=== PATIENT | male | born 1950 | race Caucasian/White ===

== ENCOUNTER 2016-11-01 14:12 | Emergency (ER) | payer MEDICARE, BC ==
[2016-11-01 14:21] VITALS: BP 123/76; PULSE 101; RESP 20; TEMP 99.3
--- NOTE | 2016-11-01 14:43 | ED ---
General Adult HPI - General Chief complaint: Fall Stated complaint: Fall/Neck Pain Time Seen by Provider: 11/01/16 14:26 Source: patient, RN notes reviewed Mode of arrival: ambulatory Limitations: no limitations - History of Present Illness Initial comments: This is a 66-year-old male who states he fell down approximately 12 stairs at 2 AM Wednesday morning. Patient states he slipped on the top stair and slid down on his backside the rest of the way. Patient states he did hit his head but did not lose consciousness. Patient denies any headache, nausea/vomiting, visual changes. Patient does state he has some mild neck pain. Patient states he has noticed pain in the lower spine. Patient has been able to ambulate without difficulty but complains of some left foot pain. Patient states he went to work today and realized that the pain was increasing so he came in for evaluation. Patient is not on any blood thinners. Patient denies any numbness/ tingling or weakness. Patient sees a pain management doctor for chronic pain and takes percocet at home. Patient denies any recent fever, chills, shortness breath, chest pain, abdominal pain, nausea/vomiting/diarrhea, hematuria, or any other complaints. - Related Data Home Medications Medication Instructions Recorded Confirmed Lisinopril-Hctz 10-12.5 mg 1 each PO DAILY 05/01/14 11/01/16 [Zestoretic 10-12.5] Meclizine HCl 12.5 mg PO TID PRN 05/01/14 11/01/16 Omeprazole [PriLOSEC] 20 mg PO AC-BRKFST 05/01/14 11/01/16 Zolpidem [Ambien] 10 mg PO HS 05/01/14 11/01/16 oxyCODONE-APAP 10-325MG [Percocet 1 each PO QID 05/01/14 11/01/16 10-325 mg] Divalproex [Depakote] 750 mg PO HS 08/13/14 11/01/16 busPIRone HCl [Buspar] 10 mg PO BID PRN 11/12/14 11/01/16 Dicyclomine [Bentyl] 20 mg PO QID PRN 06/19/15 11/01/16 Previous Rx's Medication Instructions Recorded traMADol HCl [Ultram] 50 mg PO Q4H PRN #20 tab 07/29/15 Allergies Allergy/AdvReac Type Severity Reaction Status Date / Time amoxicillin [Amoxicillin] Allergy Rash/Hives Verified 11/01/16 14:21 erythromycin lactobionate Allergy Rash/Hives Verified 11/01/16 14:21 [From Erythrocin] methylprednisolone Allergy Rash/Hives Verified 11/01/16 14:21 [From Medrol] naproxen [From Naprosyn] Allergy Rash/Hives Verified 11/01/16 14:21 Sulfa (Sulfonamide Allergy Rash/Hives Verified 11/01/16 14:21 Antibiotics) Review of Systems ROS Statement: Those systems with pertinent positive or pertinent negative responses have been documented in the HPI. ROS Other: All systems not noted in ROS Statement are negative. Past Medical History Past Medical History: Hypertension, Myocardial Infarction ([place]) Additional Past Medical History / Comment(s): CHRONIC BACK PAIN, esophageal stricture, diarrhea Last Myocardial Infarction Date:: 1990 History of Any Multi-Drug Resistant Organisms: None Reported Past Surgical History: Heart Catheterization, Hernia Repair, Orthopedic Surgery Additional Past Surgical History / Comment(s): EGD WITH DILITATION, PAIN STIMULATOR, LEFT KNEE surgery x 3, left knee cap removed, mika shoulder surgery, rt wrist surgery Past Anesthesia/Blood Transfusion Reactions: No Reported Reaction Past Psychological History: Depression Smoking Status: Never smoker Past Alcohol Use History: None Reported Past Drug Use History: None Reported Additional Drug Use History / Comment(s): NONE SINCE 1990 - Past Family History Mother Family Medical History: Cancer General Exam - General Exam Comments Initial Comments: General: The patient is awake and alert, in no distress, and does not appear acutely ill. Eye: Pupils are equal, round and reactive to light, extra-ocular movements are intact. No nystagmus. There is normal conjunctiva bilaterally. No signs of icterus. Ears: TMs pink and pearly with intact cone of light bilaterally. Normal external ear canals Nose: Nasal turbinates pink and moist Mouth and throat: There are moist mucous membranes and no oral lesions. Neck: Mild cervical midline tenderness around C7. Patient is in a c-collar. The neck is supple, there is no JVD. Cardiovascular: There is a regular rate and rhythm. No murmur, rub or gallop is appreciated. Respiratory: Lungs are clear to auscultation, respirations are non-labored, breath sounds are equal. No wheezes, stridor, rales, or rhonchi. Musculoskeletal: There is tenderness to palpation over the left great toe, no ecchymosis or significant swelling or erythema. Tenderness to palpation over the distal left tib-fib. There is tenderness to palpation over the lumbar spine and right side ribs and mid thoracic spine. Patient has healed surgical scars from past back surgery and nerve stimulator placement. Normal ROM. Patient is ambulating without difficulty. Strength 5/5. Sensation intact. Radial and posterior tibial pulses equal bilaterally 2+. Capillary refill is normal at less than 2 seconds. Neurological: A&O x 3. CN II-XII intact, There are no obvious motor or sensory deficits. Coordination appears grossly intact. Speech is normal. Skin: Skin is warm and dry and no rashes or lesions are noted. Psychiatric: Cooperative, appropriate mood & affect, normal judgment. Limitations: no limitations Course Vital Signs 11/01/16 14:16 Temperature 99.3 F Pulse Rate 101 H Respiratory 20 Rate Blood Pressure 123/76 O2 Sat by Pulse 96 Oximetry Medical Decision Making - Medical Decision Making This is a 56-year-old male presents after a fall that happened Wednesday at 2 AM. On physical exam patient is neurologically intact. There is tenderness to palpation over the left great toe no ecchymosis, erythema or significant swelling. Tenderness to palpation over the distal left tib-fib. There is tenderness to palpation over the lumbar spine and right side ribs and mid thoracic spine. Patient has healed surgical scars from past back surgery and nerve stimulate replacement. Normal ROM. Patient is ambulating without difficulty. Strength 5/5. Sensation intact. Radial and posterior tibial pulses equal bilaterally 2+. Capillary refill is normal at less than [address] of the cervical spine was done and reviewed showing: CT cervical spine: Mild degenerative changes for the patient's age. #2 no acute osseous abnormality. Report read by Dr. Kulkarni. Patient's c-collar was removed at this time. X-rays: X-ray thoracic spine: No acute osseous abnormality thoracic spine. X- ray left foot: No acute osseous abnormality of left foot. X-ray left tib-fib: # 1 normal two-view left tibia and fibula. Number to follow-up study can be performed 7-10 days from acute trauma for continued pain. X-ray lumbar spine: Mild diffuse degenerative disc changes. X-ray right ribs: The radiologist read no right rib fractures but I see a rib fracture to rib #7. This correlates with the patient's point of maximal tenderness. Rib xray addendum: Single image there is a lucency within the seventh posterior lateral rib at the tip of the scapula. This can be compatible with a nondisplaced fracture. Pneumothorax is not evident. Addendum by Dr. Kulkarni I discussed the results with patient and his who was also present in the room. I discussed If symptoms do not improve in the next 7 days repeat x-rays may be needed to rule out occult fracture. Discussed the possibility of gout in the left foot and follow-up with his primary care physician in the next 1-2 days for reevaluation. Patient denies any history of gout. Patient was given a Vilas in the [facility]. Patient has Percocet that he takes at home. I discussed risks of pneumonia and atelectasis with rib fractures and prevention with incentive spirometry. I discussed warm heating pads to the area. I discussed return parameters. I discussed that patient should follow-up with his primary care physician in one to 2 days or return to the [facility] for any worsening symptoms or for any further concerns. Patient and were receptive to this plan and patient will be discharged home. Disposition Clinical Impression: Rib fracture Disposition: HOME SELF-CARE Condition: Good Instructions: Rib Fracture (ED) Additional Instructions: Please continue your home pain medication. Please use warm heating pads to the area. Please use incentive spirometer. Please follow-up with family doctor in the next 2 days of symptoms have not improved. Please return to emergency room if the symptoms increase or worsen or for any other concerns. Referrals: Austen Loaiza MD [Primary Care Provider] - 1-2 days Time of Disposition: 17:00
--- NOTE | 2016-11-01 15:15 | CT ---
EXAMINATION TYPE: CT cervical spine wo con DATE OF EXAM: 11/01/2016 2:59 PM COMPARISON: NONE HISTORY: Neck pain post fall CT DLP: 611 mGycm Automated exposure control for dose reduction was used. TECHNIQUE: CT scan of the cervical spine is obtained without contrast, axial images are obtained, sa gittal and coronal reformatted images are also reviewed. FINDINGS: Minimal posterior disc space narrowing is present. Significant uncovertebral joint hypertro phy is not evident. No foraminal stenosis is evident. No spinal canal stenosis is present. Mild scoli osis is present. IMPRESSION: 1. Mild degenerative changes for the patient age. 2. No acute osseous abnormality.
[2016-11-01] MEDS ORDERED: HYDROcodone/APAP 5-325MG 1 EACH TAB PO STA (16:14)
--- NOTE | 2016-11-01 16:44 | XR ---
EXAMINATION TYPE: XR thoracic spine complete DATE OF EXAM: 11/01/2016 4:41 PM COMPARISON: NONE HISTORY: Fall downstairs TECHNIQUE: 3 view thoracic spine FINDINGS: There is a stimulator lead with the superior tip at the T6 level. There are 12 thoracic typ e vertebral bodies. The pedicles are intact. Vertebral body heights are preserved. Disc heights are p reserved. Transthoracic swimmer's view was also obtained. IMPRESSION: 1. No acute osseous abnormality thoracic spine
--- NOTE | 2016-11-01 16:48 | XR ---
EXAMINATION TYPE: XR foot complete LT DATE OF EXAM: 11/01/2016 4:04 PM COMPARISON: NONE HISTORY: Pain TECHNIQUE: 3 view left foot FINDINGS: There is performed in the distal fourth and fifth digits present. Joint spaces are preserve d. No acute fractures are evident IMPRESSION: 1. No acute osseous abnormality left foot
--- NOTE | 2016-11-01 16:49 | XR ---
EXAMINATION TYPE: XR tibia fibula LT DATE OF EXAM: 11/01/2016 4:04 PM COMPARISON: NONE HISTORY: Pain from fall TECHNIQUE: 2 view left tibia and fibula FINDINGS: No acute fractures or dislocations are evident. Joint spaces are preserved IMPRESSION: 1. Normal 2 view left tibia and fibula. 2. Follow-up study can be performed 7-10 days from acute trauma for continued pain
--- NOTE | 2016-11-01 16:50 | XR ---
EXAMINATION TYPE: XR lumbar spine 2 or 3V DATE OF EXAM: 11/01/2016 4:03 PM COMPARISON: NONE HISTORY: Fall, pain TECHNIQUE: 3 view lumbar spine FINDINGS: Disc space narrowing is present L4-5 posteriorly at L3-4 and L2-3 there 5 lumbar-type verte bral bodies. The pedicles are intact. Vertebral body heights are preserved. Alignment is normal. IMPRESSION: 1. Mild diffuse degenerative disc changes.
--- NOTE | 2016-11-01 16:52 | XR ---
EXAMINATION TYPE: XR ribs RT w pa chest xray DATE OF EXAM: 11/01/2016 3:47 PM COMPARISON: NONE HISTORY: Fall, pain TECHNIQUE: AP chest and 2 views right ribs FINDINGS: No acute displaced fractures are evident. No pneumothorax is evident. IMPRESSION: 1. No acute right rib fractures
== END 2016-11-01 17:12 | disposition home or self-care (01) ==
LOC: EC 14:12
DX: S22.31XA Fracture of one rib, right side, initial encounter for closed fracture (principal); M54.2 Cervicalgia; M54.5 Low back pain; M79.672 Pain in left foot; I10 Essential (primary) hypertension; I25.2 Old myocardial infarction; F32.9 Major depressive disorder, single episode, unspecified; Z87.19 Personal history of other diseases of the digestive system; Z79.899 Other long term (current) drug therapy; Z88.0 Allergy status to penicillin; Z88.1 Allergy status to other antibiotic agents; Z88.2 Allergy status to sulfonamides; Z88.8 Allergy status to other drugs, medicaments and biological substances; Z88.6 Allergy status to analgesic agent; W10.9XXA Fall (on) (from) unspecified stairs and steps, initial encounter; W22.09XA Striking against other stationary object, initial encounter
CPT/HCPCS: 72072; 72100; 72125; 99284

== ENCOUNTER 2019-11-29 01:53 | Emergency (ER) | payer MEDICARE, BC ==
--- NOTE | 2019-11-29 03:09 | CT ---
EXAMINATION TYPE: CT brain cspine wo con DATE OF EXAM: 11/29/2019 COMPARISON: CT brain 11/12/2014 CT scan cervical spine 11/01/2016. HISTORY: AMS Headache. Neck pain. CT DLP: 1510.8 mGycm Automated exposure control for dose reduction was used. Multiple axial sections were obtained of the brain without contrast. Multiple axial sections were obt ained from the skull base to T1 vertebra without contrast. There is mild cerebral atrophy. There is no mass effect nor midline shift. There is no sign of intrac ranial hemorrhage. Calvarium is intact. There is no evidence of cerebral edema. The skull base is intact. The cervical vertebra have fairly normal alignment. Disc spaces appear norm al for age. Posterior elements are intact. IMPRESSION: Negative CT scan of the brain. No change. Negative CT scan of the cervical spine. No fracture.
[2019-11-29 04:03] VITALS: RESP 16
--- NOTE | 2019-11-29 06:27 | ED ---
Altered Mental Status HPI - General Chief Complaint: Altered Mental Status Stated Complaint: Altered Mental Status Time Seen by Provider: 11/29/19 01:54 Source: patient, EMS Mode of arrival: EMS Limitations: no limitations - History of Present Illness Initial Comments: This patient is 69-year-old man sent to be evaluated after he was reportedly confused and disoriented. The patient did admit to taking Ambien as well as drinking alcohol. He had also taken melatonin to try to go to sleep. The patient's felt that he was much more confused than usual and he is here for evaluation. Patient not able to state with certainty that he did not have a fall or injury. MD Complaint: confusion, intoxication -: hour(s) Severity: moderate Consistency of Symptoms: getting worse Associated Symptoms: denies other symptoms - Related Data Home Medications Medication Instructions Recorded Confirmed Lisinopril-Hctz 10-12.5 mg 1 each PO DAILY 05/01/14 11/01/16 [Zestoretic 10-12.5] Meclizine HCl 12.5 mg PO TID PRN 05/01/14 11/01/16 Omeprazole [PriLOSEC] 20 mg PO AC-BRKFST 05/01/14 11/01/16 Zolpidem [Ambien] 10 mg PO HS 05/01/14 11/01/16 oxyCODONE-APAP 10-325MG [Percocet 1 each PO QID 05/01/14 11/01/16 10-325 mg] Divalproex [Depakote] 750 mg PO HS 08/13/14 11/01/16 busPIRone HCl [Buspar] 10 mg PO BID PRN 11/12/14 11/01/16 Dicyclomine [Bentyl] 20 mg PO QID PRN 06/19/15 11/01/16 Previous Rx's Medication Instructions Recorded traMADol HCl [Ultram] 50 mg PO Q4H PRN #20 tab 07/29/15 Allergies Allergy/AdvReac Type Severity Reaction Status Date / Time amoxicillin [Amoxicillin] Allergy Rash/Hives Verified 01/07/18 03:37 erythromycin lactobionate Allergy Rash/Hives Verified 01/07/18 03:37 [From Erythrocin] methylprednisolone Allergy Rash/Hives Verified 01/07/18 03:37 [From Medrol] naproxen [From Naprosyn] Allergy Rash/Hives Verified 01/07/18 03:37 Sulfa (Sulfonamide Allergy Rash/Hives Verified 01/07/18 03:37 Antibiotics) Review of Systems ROS Statement: Those systems with pertinent positive or pertinent negative responses have been documented in the HPI. ROS Other: All systems not noted in ROS Statement are negative. Constitutional: Denies: fever, chills Respiratory: Denies: cough, dyspnea Cardiovascular: Denies: chest pain, palpitations Gastrointestinal: Denies: abdominal pain, vomiting Musculoskeletal: Denies: back pain Neurological: Denies: headache Psychiatric: Denies: homicidal thoughts, suicidal thoughts Past Medical History Past Medical History: Hypertension, Myocardial Infarction ([place]) Additional Past Medical History / Comment(s): CHRONIC BACK PAIN, esophageal stricture, diarrhea Last Myocardial Infarction Date:: 1990 History of Any Multi-Drug Resistant Organisms: None Reported Past Surgical History: Heart Catheterization, Hernia Repair, Orthopedic Surgery Additional Past Surgical History / Comment(s): EGD WITH DILITATION, PAIN S TIMULATOR, LEFT KNEE surgery x 3, left knee cap removed, mika shoulder surgery, rt wrist surgery Past Anesthesia/Blood Transfusion Reactions: No Reported Reaction Past Psychological History: Depression Smoking Status: Never smoker Past Alcohol Use History: None Reported - Past Family History Mother Family Medical History: Cancer General Exam Limitations: no limitations General appearance: alert, in no apparent distress Head exam: Present: atraumatic, normocephalic Eye exam: Present: normal appearance ENT exam: Present: normal oropharynx Neck exam: Present: normal inspection. Absent: tenderness Respiratory exam: Present: normal lung sounds bilaterally. Absent: respiratory distress, wheezes, rales, rhonchi, stridor Cardiovascular Exam: Present: regular rate, normal rhythm, normal heart sounds. Absent: systolic murmur, diastolic murmur, rubs, gallop GI/Abdominal exam: Present: soft. Absent: tenderness, guarding, rebound Extremities exam: Present: normal inspection, normal capillary refill Back exam: Present: normal inspection. Absent: CVA tenderness (R), CVA tenderness (L), vertebral tenderness Neurological exam: Present: altered, CN II-XII intact. Absent: motor sensory deficit Skin exam: Present: warm, dry, intact, normal color. Absent: rash Course Vital Signs 11/29/19 11/29/19 11/29/19 01:54 02:21 04:02 Temperature 97.8 F Pulse Rate 92 94 89 Respiratory 18 18 16 Rate Blood Pressure 169/102 166/100 154/95 O2 Sat by Pulse 97 93 L 95 Oximetry 11/29/19 07:03 Temperature 98.0 F Pulse Rate 88 Respiratory 16 Rate Blood Pressure 144/101 O2 Sat by Pulse 97 Oximetry Medical Decision Making - Medical Decision Making Patient is 69-year-old man here for confusion and disorientation. Off to rule out head trauma, computed tomography scan is ordered and is negative. Patient does appear to be intoxicated and with passage of time he is clearing appropriately as expected. - EKG Data -: EKG Interpreted by [facility] EKG shows normal: sinus rhythm, axis (Normal), intervals (Normal), QRS complexes (CT interval 202 ms, QRS duration 94 ms. Both normal. QTc 487 ms, prolonged.), ST-T waves (Normal) Rate: normal (Rate 92 bpm) Disposition Clinical Impression: Alcoholic intoxication, Altered mental status Disposition: HOME SELF-CARE Condition: Good Instructions (If sedation given, give patient instructions): Altered Mental Status (ED) Is patient prescribed a controlled substance at d/c from ED?: No Referrals: Austen Loaiza MD [Primary Care Provider] - 1-2 days
[2019-11-29 07:04] VITALS: BP 144/101; PULSE 88; TEMP 98
== END 2019-11-29 07:18 | disposition home or self-care (01) ==
LOC: EC 01:53
DX: F10.129 Alcohol abuse with intoxication, unspecified (principal); R41.82 Altered mental status, unspecified; I10 Essential (primary) hypertension; F32.9 Major depressive disorder, single episode, unspecified; I25.2 Old myocardial infarction; Z79.899 Other long term (current) drug therapy; Z88.0 Allergy status to penicillin; Z88.1 Allergy status to other antibiotic agents; Z88.2 Allergy status to sulfonamides; Z88.8 Allergy status to other drugs, medicaments and biological substances; Z88.6 Allergy status to analgesic agent
CPT/HCPCS: 70450; 72125; 99285

== ENCOUNTER 2020-07-20 15:59 | Emergency (ER) | payer BC, MEDICARE, OTHER ==
[2020-07-20 16:09] VITALS: BP 150/86; PULSE 89; RESP 16; TEMP 99
--- NOTE | 2020-07-20 16:26 | ED ---
Fall HPI - General Chief Complaint: Fall Stated Complaint: work injury to head,torso and hand Time Seen by Provider: 07/20/20 16:15 Source: patient Mode of arrival: ambulatory - History of Present Illness Initial Comments: 70-year-old male presenting to the emergency Department with a chief complaint of a fall. Patient states he was at work while getting out of the truck when he tripped over the [place] on the park,. Patient states as he went down, he fell on the left side of his body and also hit his head. He also reports a laceration to left supraorbital region. Denies any headaches, visual disturbances. Denies any loss of consciousness. He states he went to an urgent care and they advised him to come to the ED. Patient reports some pain in the left arm but mostly the pain is located in his left ribs. He denies any blood thinners. Denies taking medication to alleviate the symptoms. - Related Data Home Medications Medication Instructions Recorded Confirmed Lisinopril-Hctz 10-12.5 mg 1 each PO DAILY 05/01/14 11/01/16 [Zestoretic 10-12.5] Meclizine HCl 12.5 mg PO TID PRN 05/01/14 11/01/16 Omeprazole [PriLOSEC] 20 mg PO AC-BRKFST 05/01/14 11/01/16 Zolpidem [Ambien] 10 mg PO HS 05/01/14 11/01/16 oxyCODONE-APAP 10-325MG [Percocet 1 each PO QID 05/01/14 11/01/16 10-325 mg] Divalproex [Depakote] 750 mg PO HS 08/13/14 11/01/16 busPIRone HCl [Buspar] 10 mg PO BID PRN 11/12/14 11/01/16 Dicyclomine [Bentyl] 20 mg PO QID PRN 06/19/15 11/01/16 Previous Rx's Medication Instructions Recorded traMADol HCl [Ultram] 50 mg PO Q4H PRN #20 tab 07/29/15 Allergies Allergy/AdvReac Type Severity Reaction Status Date / Time amoxicillin [Amoxicillin] Allergy Rash/Hives Verified 07/20/20 16:09 erythromycin lactobionate Allergy Rash/Hives Verified 07/20/20 16:09 [From Erythrocin] methylprednisolone Allergy Rash/Hives Verified 07/20/20 16:09 [From Medrol] naproxen [From Naprosyn] Allergy Rash/Hives Verified 07/20/20 16:09 Sulfa (Sulfonamide Allergy Rash/Hives Verified 07/20/20 16:09 Antibiotics) Review of Systems ROS Statement: Those systems with pertinent positive or pertinent negative responses have been documented in the HPI. ROS Other: All systems not noted in ROS Statement are negative. Past Medical History Past Medical History: Hypertension, Myocardial Infarction ([place]) Additional Past Medical History / Comment(s): CHRONIC BACK PAIN, esophageal stricture, diarrhea, Last Myocardial Infarction Date:: 1990 History of Any Multi-Drug Resistant Organisms: None Reported Past Surgical History: Heart Catheterization, Hernia Repair, Orthopedic Surgery Additional Past Surgical History / Comment(s): EGD WITH DILITATION, PAIN STIMULATOR, LEFT KNEE surgery x 3, left knee cap removed, mika shoulder surgery, rt wrist surgery, Past Anesthesia/Blood Transfusion Reactions: No Reported Reaction Past Psychological History: Depression Smoking Status: Never smoker Past Alcohol Use History: Rare Past Drug Use History: None Reported - Past Family History Mother Family Medical History: Cancer General Exam Limitations: no limitations General appearance: alert, in no apparent distress Head exam: Present: atraumatic, normocephalic, normal inspection Eye exam: Present: normal appearance, PERRL, EOMI Pupils: Present: normal accommodation ENT exam: Present: normal exam, normal oropharynx, mucous membranes moist, TM's normal bilaterally, normal external ear exam Neck exam: Present: normal inspection, full ROM. Absent: tenderness Respiratory exam: Present: normal lung sounds bilaterally, chest wall tenderness (Tenderness to the left flank region.). Absent: respiratory distress, wheezes, rales Cardiovascular Exam: Present: regular rate, normal rhythm, normal heart sounds GI/Abdominal exam: Present: soft. Absent: distended, tenderness, guarding Extremities exam: Present: normal inspection, full ROM, normal capillary refill, other (+2 ulnar radial pulses bilaterally.). Absent: tenderness, pedal edema, joint swelling, calf tenderness Back exam: Present: normal inspection, full ROM. Absent: tenderness, CVA tenderness (R), CVA tenderness (L) Neurological exam: Present: alert, oriented X3, normal gait Psychiatric exam: Present: normal affect, normal mood Skin exam: Present: warm, dry, intact, normal color. Absent: rash Course Vital Signs 07/20/20 16:04 Temperature 99 F Pulse Rate 89 Respiratory 16 Rate Blood Pressure 150/86 O2 Sat by Pulse 98 Oximetry Procedures - Laceration Laceration #1 Consent Obtained: verbal consent Indication: laceration Site: face Size (cm): 4 Description: linear, clean Depth: simple, single layer Sedation/Analgesia: none Anesthetic Used: lidocaine 1% Anesthesia Technique: local infiltration Amount (mls): 5 Pre-repair: irrigated extensively, deep structures intact Type of Sutures: nylon Size of Sutures: 4-0 Number of Sutures: 5 Technique: simple, interrupted Patient Tolerated Procedure: well, no complications Medical Decision Making - Medical Decision Making 70-year-old male presenting to the emergency department for a fall. On physical examination, patient has some bruising to the left hand although he has full range of motion. Some tenderness to the ribs on the left side. No signs of contusion to ribs. Chest x-ray with ribs is negative. X-ray of the hand is negative. He also had laceration to the left supraorbital region. CT of the brain C-spine is unremarkable. Laceration site was repaired with 5 suture. Patient tolerated procedure well. Return parameters discussed patient is understanding and agreeable. Case discussed physician. Disposition Clinical Impression: Fall, Head injury, Forehead laceration Disposition: HOME SELF-CARE Condition: Stable Instructions (If sedation given, give patient instructions): Care For Your Stitches (DC), Laceration (DC) Additional Instructions: Please return to the emergency room in 5-7 days to have sutures removed. Please watch for any signs of infection which may include increased pain, swelling, redness, fever or chills. Please return to emergency room for any signs of infection do occur. Please use clean soap and water over the area to prevent scabbing over your stitches. Please leave wound covered for the first 24-48 hours and then leave wound open to air. Please return to the emergency room for any other concerns. Is patient prescribed a controlled substance at d/c from ED?: No Referrals: Austen Loaiza MD [Primary Care Provider] - 1-2 days Time of Disposition: 18:14
[2020-07-20] MEDS ORDERED: DIPH,PERTUS(ACELL)TETVAC-LF 0.5 ML VIAL IM ONE (16:33)
[2020-07-20] MEDS ORDERED: LIDOCAINE 1% INJ 10MG/ML (20 ML MDV) SQ ONE (16:33)
--- NOTE | 2020-07-20 17:18 | CT ---
EXAMINATION TYPE: CT brain timothyine wo con DATE OF EXAM: 07/20/2020 COMPARISON: 11/29/2019 HISTORY: Fall with left supraorbital injury. CT DLP: 1370.1 mGycm, Automated exposure control for dose reduction was used. CONTRAST: Patient injected with 0 mL of Isovue 300. CT of the brain is performed utilizing 3 mm thick sections through the posterior fossa and 3 mm thick sections through the remaining calvarium. Study is performed within 24 hours of arrival to the hospital. No abnormal hyperdensity is present to suggest an acute intracranial hemorrhage. No mass lesion is evident. No acute infarcts are evident. Ventricles and sulci are appropriate for the patient age. Paranasal sinuses and mastoid air cells within the [id number] are clear. IMPRESSIONS: 1. Normal CT brain. CT cervical spine. COMPARISON: 11/29/2019 CT of the cervical spine is performed in the axial plane at 2 mm thick sections. Reconstructed image s in the coronal, and sagittal plane are reviewed on the computer. No acute fractures are evident. Vertebral body alignment is normal. Mild disc space narrowing is present diffusely. Vertebral body heights are preserved. No spinal canal stenosis is evident. No neural foraminal stenosis is evident. IMPRESSIONS: 1. Mild degenerative disc changes cervical spine, stable from comparison
--- NOTE | 2020-07-20 17:23 | XR ---
EXAMINATION TYPE: XR hand complete LT DATE OF EXAM: 07/20/2020 COMPARISON: None HISTORY: Hand injury bruising abrasions TECHNIQUE: Three-view left hand FINDINGS: Diffuse joint space narrowing is present. No acute fractures or dislocations are evident. S oft tissues appear unremarkable. Follow-up exams can be performed 7-10 days from acute trauma for continued pain. IMPRESSION: 1. No acute osseous abnormality.
--- NOTE | 2020-07-20 17:25 | XR ---
EXAMINATION TYPE: XR ribs LT w pa chest xray DATE OF EXAM: 07/20/2020 COMPARISON: 11/01/2016 HISTORY: Fall, left rib pain TECHNIQUE: Frontal chest with 2 views left RIBS FINDINGS: No pneumothorax is evident. Heart size is normal. Stimulator leads are within the thoracic region. No displaced rib fractures are identified. IMPRESSION: 1. Normal left ribs
== END 2020-07-20 18:17 | disposition home or self-care (01) ==
LOC: EC 15:59
DX: S01.81XA Laceration without foreign body of other part of head, initial encounter (principal); S60.222A Contusion of left hand, initial encounter; R07.81 Pleurodynia; I10 Essential (primary) hypertension; G89.29 Other chronic pain; M54.9 Dorsalgia, unspecified; I25.2 Old myocardial infarction; Z79.891 Long term (current) use of opiate analgesic; Z79.899 Other long term (current) drug therapy; Z88.0 Allergy status to penicillin; Z88.1 Allergy status to other antibiotic agents; Z88.6 Allergy status to analgesic agent; Z88.2 Allergy status to sulfonamides; Z88.8 Allergy status to other drugs, medicaments and biological substances; Z23 Encounter for immunization; W18.09XA Striking against other object with subsequent fall, initial encounter; Y92.830 Public park as the place of occurrence of the external cause; Y99.0 Civilian activity done for income or pay
CPT/HCPCS: 71101; 73130; 72125; 70450; 90715; 99283; 12013; 90471; J2001

== ENCOUNTER 2020-07-29 10:50 | Emergency (ER) | payer BC, MEDICARE, OTHER ==
[2020-07-29 11:07] VITALS: BP 122/86; PULSE 90; RESP 18; TEMP 98.2
--- NOTE | 2020-07-29 11:43 | ED ---
General Adult HPI - General Chief complaint: Recheck/Abnormal Lab/Rx Stated complaint: IHS revisit/rib pain/stitches removal Time Seen by Provider: 07/29/20 11:19 Source: patient, family, RN notes reviewed Mode of arrival: ambulatory Limitations: no limitations - History of Present Illness Initial comments: 70-year-old male presents emergency Department with chief complaint of onset rib pain. Patient fell one week ago was seen in emergency department had sutures placed. Patient states that morning he sat up and felt a pop in his ribs and states she's had pain ever since. Patient states that he does not feel short of breath at rest he states it hurts to take a deep breath, cough or sneeze. Patient denies any ecchymosis. Patient offers no other complaints. Patient also states he needs his sutures removed. - Related Data Home Medications Medication Instructions Recorded Confirmed Lisinopril-Hctz 10-12.5 mg 1 each PO DAILY 05/01/14 11/01/16 [Zestoretic 10-12.5] Meclizine HCl 12.5 mg PO TID PRN 05/01/14 11/01/16 Omeprazole [PriLOSEC] 20 mg PO AC-BRKFST 05/01/14 11/01/16 Zolpidem [Ambien] 10 mg PO HS 05/01/14 11/01/16 oxyCODONE-APAP 10-325MG [Percocet 1 each PO QID 05/01/14 11/01/16 10-325 mg] Divalproex [Depakote] 750 mg PO HS 08/13/14 11/01/16 busPIRone HCl [Buspar] 10 mg PO BID PRN 11/12/14 11/01/16 Dicyclomine [Bentyl] 20 mg PO QID PRN 06/19/15 11/01/16 Previous Rx's Medication Instructions Recorded traMADol HCl [Ultram] 50 mg PO Q4H PRN #20 tab 07/29/15 Allergies Allergy/AdvReac Type Severity Reaction Status Date / Time amoxicillin [Amoxicillin] Allergy Rash/Hives Verified 07/29/20 11:07 erythromycin lactobionate Allergy Rash/Hives Verified 07/29/20 11:07 [From Erythrocin] methylprednisolone Allergy Rash/Hives Verified 07/29/20 11:07 [From Medrol] naproxen [From Naprosyn] Allergy Rash/Hives Verified 07/29/20 11:07 Sulfa (Sulfonamide Allergy Rash/Hives Verified 07/29/20 11:07 Antibiotics) Review of Systems ROS Statement: Those systems with pertinent positive or pertinent negative responses have been documented in the HPI. ROS Other: All systems not noted in ROS Statement are negative. Past Medical History Past Medical History: Hypertension, Myocardial Infarction (MD) Additional Past Medical History / Comment(s): CHRONIC BACK PAIN, esophageal stricture, diarrhea, Last Myocardial Infarction Date:: 1990 History of Any Multi-Drug Resistant Organisms: None Reported Past Surgical History: Heart Catheterization, Hernia Repair, Orthopedic Surgery Additional Past Surgical History / Comment(s): EGD WITH DILITATION, PAIN S TIMULATOR, LEFT KNEE surgery x 3, left knee cap removed, mika shoulder surgery, rt wrist surgery, Past Anesthesia/Blood Transfusion Reactions: No Reported Reaction Past Psychological History: Depression Smoking Status: Never smoker Past Alcohol Use History: Rare Past Drug Use History: None Reported - Past Family History Mother Family Medical History: Cancer General Exam Limitations: no limitations General appearance: alert, in no apparent distress Head exam: Present: atraumatic, normocephalic, normal inspection Eye exam: Present: normal appearance, PERRL, EOMI, other (, well-healed). Absent: scleral icterus, conjunctival injection, periorbital swelling ENT exam: Present: normal exam, normal oropharynx, mucous membranes moist Neck exam: Present: normal inspection, full ROM. Absent: tenderness, meningismus, lymphadenopathy Respiratory exam: Present: normal lung sounds bilaterally, chest wall tenderness (mild to moderate left anterior lateral). Absent: respiratory distress, wheezes, rales, rhonchi, stridor Cardiovascular Exam: Present: regular rate, normal rhythm, normal heart sounds. Absent: systolic murmur, diastolic murmur, rubs, gallop, clicks GI/Abdominal exam: Present: soft, normal bowel sounds. Absent: distended, tenderness, guarding, rebound, rigid Neurological exam: Present: alert, oriented X3, CN II-XII intact, reflexes n ormal. Absent: motor sensory deficit Course Vital Signs 07/29/20 11:01 Temperature 98.2 F Pulse Rate 90 Respiratory 18 Rate Blood Pressure 122/86 O2 Sat by Pulse 97 Oximetry Medical Decision Making - Medical Decision Making x-ray shows evidence of rib fracture may be chronic though patient has point tenderness. Patient is stable otherwise sutures removed patient we discharged she states that he has pain medication at home. Disposition Clinical Impression: Left rib fracture, Visit for suture removal Disposition: HOME SELF-CARE Condition: Stable Instructions (If sedation given, give patient instructions): Rib Fracture (ED) Additional Instructions: Please return to the Emergency Department if symptoms worsen or any other stu rns. Is patient prescribed a controlled substance at d/c from ED?: No Referrals: Austen Loazia MD [Primary Care Provider] - 1-2 days Time of Disposition: 12:17
--- NOTE | 2020-07-29 12:05 | XR ---
EXAMINATION TYPE: XR ribs LT w pa chest xray DATE OF EXAM: 07/29/2020 CLINICAL HISTORY: Chest and left-sided rib pain after injury. TECHNIQUE: Single frontal view of the chest is obtained. A frontal and oblique images left-sided ribs . COMPARISON: Chest and left-sided rib x-rays July 20, 2020 FINDINGS: There is chronic parenchymal changes bilaterally without suspicious focal air space opacit y, pleural effusion, or pneumothorax seen. The cardiac silhouette size remains within normal limits. Spinal stimulator device in the mid to lower thoracic spinal canal is redemonstrated. Dedicated images of left-sided ribs show age-indeterminate fracture deformity of the anterolateral si xth rib. This is less well seen on prior study due to technique. Findings favor old. No linear lucenc y to suggest acute fracture clearly seen. Overlying soft tissue is unremarkable. IMPRESSION: 1. Chronic changes without acute pulmonary process. 2. Age-indeterminate fracture deformity anterolateral left sixth rib favored chronic in age, correlat e with point tenderness at that level advised.
== END 2020-07-29 12:57 | disposition home or self-care (01) ==
LOC: EC 10:50
DX: S22.32XD Fracture of one rib, left side, subsequent encounter for fracture with routine healing (principal); Z48.02 Encounter for removal of sutures; F32.9 Major depressive disorder, single episode, unspecified; I10 Essential (primary) hypertension; I25.2 Old myocardial infarction; Z79.899 Other long term (current) drug therapy; Z88.0 Allergy status to penicillin; Z88.1 Allergy status to other antibiotic agents; Z88.2 Allergy status to sulfonamides; Z88.8 Allergy status to other drugs, medicaments and biological substances; Z95.5 Presence of coronary angioplasty implant and graft; W18.30XD Fall on same level, unspecified, subsequent encounter; Y92.69 Other specified industrial and construction area as the place of occurrence of the external cause; Y99.0 Civilian activity done for income or pay
CPT/HCPCS: 99283

== ENCOUNTER → 2020-11-11 | Outpatient (CLI) | payer MEDICARE, BC ==
--- NOTE | 2020-11-11 10:03 | US ---
EXAMINATION TYPE: US thyroid st tissue head/neck DATE OF EXAM: 11/11/2020 COMPARISON: NONE CLINICAL HISTORY: E04.1 Thyroid nodule. Patient states difficulty swallowing. GLAND SIZE: Right Lobe: 4.4 x 1.8 x 1.5 cm Overall Parenchyma: homogenous Left Lobe: 4.3 x 1.8 x 1.2 cm Overall Parenchyma: homogeneous Isthmus Thickness: 0.3 cm NODULES RIGHT: # of nodules measured on right: 0 LEFT: # of nodules measured on left: 0 ISTHMUS: # of nodules measured in the isthmus: 0 Bilateral neck scanned, no evidence of lymphadenopathy. IMPRESSION: Normal thyroid
--- NOTE | 2020-11-11 10:38 | FL ---
EXAMINATION TYPE: FL barium swallow DATE OF EXAM: 11/11/2020 COMPARISON: None HISTORY: Dysphasia lump getting stuck food getting stuck TECHNIQUE: A double air contrast UGI study is performed. FINDINGS: Esophagus dilates normal caliber has normal contour to the gastroesophageal junction. Gastroesophagea l junction opens to normal caliber. There is a small self reducing sliding type hiatal hernia present. Multiple tertiary contractions are evident throughout the examination. Some secondary contractions we re also evident. IMPRESSIONS: 1. Presbyesophagus. 2. Small self reducing hiatal hernia
[2020-11-11 10:44] LABS: T4, Free (Free Thyroxine) 0.81 ng/dL (0.78-2.19)
== END | disposition home or self-care (01) ==
LOC: RADUSWWP 08:59
PROVIDERS: ATTEND Otolaryngology
DX: K44.9 Diaphragmatic hernia without obstruction or gangrene (principal); K22.8 Other specified diseases of esophagus; E04.1 Nontoxic single thyroid nodule; Z88.2 Allergy status to sulfonamides; Z88.0 Allergy status to penicillin; Z88.6 Allergy status to analgesic agent; Z88.1 Allergy status to other antibiotic agents
CPT/HCPCS: 74220; 76536; 84439; 84443

== ENCOUNTER 2020-12-20 09:50 | Emergency (ER) | payer MEDICARE, BC ==
[2020-12-20 10:10] VITALS: TEMP 98.7
--- NOTE | 2020-12-20 10:39 | ED ---
Skin/Abscess/FB HPI - General Chief complaint: Skin/Abscess/Foreign Body Stated complaint: Quarters stuck in throat Time Seen by Provider: 12/20/20 10:10 Source: patient Mode of arrival: ambulatory Limitations: no limitations - History of Present Illness Initial comments: Patient is a 70-year-old male presenting to the emergency department with complaints of a quarter being stuck in his throat. Patient states he was playing with his grandkids 2 nights ago and actually swallowed two quarters. He states that he has been unable to swallow solid food, he is able to get some water down. Patient states he came here yesterday to be seen but there was a long wait so he went home. He denies any trouble breathing. He feels like it is stuck in his upper chest. He describes it as a burning sensation. He has no further complaints at this time. - Related Data Home Medications Medication Instructions Recorded Confirmed Omeprazole [PriLOSEC] 20 mg PO DAILY 05/01/14 12/20/20 Zolpidem [Ambien] 10 mg PO HS 05/01/14 12/20/20 oxyCODONE-APAP 10-325MG [Percocet 1 tab PO QID 05/01/14 12/20/20 10-325 mg] Famotidine [Pepcid] 20 mg PO BID 12/20/20 12/20/20 Fluticasone Nasal [place] [Flonase 1 spray EA NOSTRIL BID PRN 12/20/20 12/20/20 Nasal [place]] Latanoprost [Xalatan 0.005%] 1 drop BOTH EYES HS 12/20/20 12/20/20 Mirtazapine [Remeron] 45 mg PO HS 12/20/20 12/20/20 Tamsulosin HCl [Flomax] 0.4 mg PO DAILY 12/20/20 12/20/20 Ziprasidone HCl [Geodon] 80 mg PO HS 12/20/20 12/20/20 buPROPion HCL [buPROPion HCL SR] 200 mg PO BID 12/20/20 12/20/20 lamoTRIgine [LaMICtal] 150 mg PO DAILY 12/20/20 12/20/20 Allergies Allergy/AdvReac Type Severity Reaction Status Date / Time amoxicillin [Amoxicillin] Allergy Rash/Hives Verified 12/20/20 11:13 erythromycin lactobionate Allergy Rash/Hives Verified 12/20/20 11:13 [From Erythrocin] methylprednisolone Allergy Rash/Hives Verified 12/20/20 11:13 [From Medrol] naproxen [From Naprosyn] Allergy Rash/Hives Verified 12/20/20 11:13 Sulfa (Sulfonamide Allergy Rash/Hives Verified 12/20/20 11:13 Antibiotics) Review of Systems ROS Statement: Those systems with pertinent positive or pertinent negative responses have been documented in the HPI. ROS Other: All systems not noted in ROS Statement are negative. Past Medical History Past Medical History: Hypertension, Myocardial Infarction (HI) Additional Past Medical History / Comment(s): CHRONIC BACK PAIN, esophageal stricture, diarrhea, Last Myocardial Infarction Date:: 1990 History of Any Multi-Drug Resistant Organisms: None Reported Past Surgical History: Heart Catheterization, Hernia Repair, Orthopedic Surgery Additional Past Surgical History / Comment(s): EGD WITH DILITATION, PAIN STIMULATOR, LEFT KNEE surgery x 3, left knee cap removed, mika shoulder surgery, rt wrist surgery, Past Anesthesia/Blood Transfusion Reactions: No Reported Reaction Past Psychological History: Depression Smoking Status: Never smoker Past Alcohol Use History: Daily Past Drug Use History: None Reported - Past Family History Mother Family Medical History: Cancer General Exam - General Exam Comments Initial Comments: GENERAL: Patient is well-developed and well-nourished. Patient is nontoxic and in no acute distress. HEAD: Atraumatic, normocephalic. EYES: Pupils equal round and reactive to light, extraocular movements intact, sclera anicteric, conjunctiva are normal. Eyelids were unremarkable. ENT: TMs normal, nares patent, oropharynx clear without exudates. Moist mucous membranes. NECK: Normal range of motion, supple without lymphadenopathy or JVD. LUNGS: Unlabored respirations. Breath sounds clear to auscultation bilaterally and equal. No wheezes rales or rhonchi. HEART: Regular rate and rhythm without murmurs, rubs or gallops. ABDOMEN: Soft, nontender, normoactive bowel sounds. No guarding, no rebound. No masses appreciated. : Deferred MUSCULOSKELETAL: Normal extremities with adequate strength and normal range of motion, no pitting or edema. No clubbing or cyanosis. NEUROLOGICAL: Patient is alert and oriented x 3. Motor and sensory are also intact. Cranial nerves II through XII grossly intact. Symmetrical smile. Normal speech, normal gait. PSYCH: Normal mood, normal affect. SKIN: Warm, Dry, normal turgor, no rashes or lesions noted. Limitations: no limitations Course Vital Signs 12/20/20 10:06 Temperature 98.7 F Pulse Rate 93 Respiratory 18 Rate Blood Pressure 145/87 O2 Sat by Pulse 97 Oximetry Medical Decision Making - Medical Decision Making Patient is a 70-year-old male presenting after he actually swallowed two quarters, 2 days ago. C/o of some chest burning and feels like they are stuck. He denies any trouble breathing. This x-ray reveals evidence for foreign object consistent with two quarters. I did speak with Dr. Brownlee who agrees to do a scope to remove the object. Patient will be discharged to the ER to go to endoscope for removal. He is discharged with stable vitals and in stable condition. Cased discussed with Dr. Allen. Disposition Clinical Impression: Obstruction of distal esophagus due to foreign body Disposition: HOME SELF-CARE Condition: Stable Instructions (If sedation given, give patient instructions): Upper Endoscopy (DC) Additional Instructions: Please return to the Emergency Department if symptoms worsen or any other concerns. Patient going to endoscope for removal of foreign body. Is patient prescribed a controlled substance at d/c from ED?: No Referrals: Austen Loaiza MD [Primary Care Provider] - 1-2 days
--- NOTE | 2020-12-20 10:44 | XR ---
EXAMINATION TYPE: XR chest 2V DATE OF EXAM: 12/20/2020 COMPARISON: Chest x-ray 07/29/2020 INDICATION: Swallowed two quarters last night TECHNIQUE: Frontal and lateral views of the chest are obtained. FINDINGS: The heart size is normal. The pulmonary vasculature is normal. The lungs are clear. Stimulator leads are within the mid thoracic region No radiopaque foreign bodies compatible with reported quarters is within the distal esophagus above t he gastroesophageal junction. IMPRESSION: 1. Radiopaque foreign bodies corresponding to suspected quarters in the distal esophagus. 2. No acute pulmonary process.
[2020-12-20] MEDS ORDERED: LACTATED RINGERS 1,000 ML IV ONE ×2 (12:10)
[2020-12-20 12:17] VITALS: RESP 16
[2020-12-20] MEDS ORDERED: fentaNYL (PF) 50 MCG/ML 2 ML AMP ONE (13:02)
[2020-12-20] MEDS ORDERED: MIDAZOLAM 2 MG/2 ML VIAL ONE (13:02)
[2020-12-20] MEDS ORDERED: PROPOFOL 10 MG/ML 20 ML VIAL IV ONE (13:02)
--- NOTE | 2020-12-20 13:29 | P.PCN ---
Date of Procedure: 12/20/20 Procedure(s) Performed: BRIEF HISTORY: Patient is a 70-year-old, pleasant, white male came to the emergency room with dysphagia after accident of swallowing fine 2 days ago while playing with his grandson. In the emergency room he had chest x-ray done that showed coins in the distal esophagus. He scheduled for an upper endoscopy for foreign body retrieval. PROCEDURE PERFORMED: Esophagogastroduodenoscop with foreign body retrieval and biopsy PREOPERATIVE DIAGNOSIS: . Esophageal foreign body IV sedation per anesthesia. PROCEDURE: After informed consent was obtained, the patient was brought into the endoscopy unit. IV sedation was administered by Anesthesia under continuous monitoring. Initially the Olympus GIF-140 video endoscope was inserted into the mouth. Esophagus intubated without any difficulty. It was gradually advanced into the distal esophagus. There were 4 coins lodged in the distal esophagus. using a rat tooth forceps the contents were retrieved one time without any difficulty and also contents were removed. the scope was then advanced into the stomach and duodenum and carefully examined. The bulb and the second part of the duodenum appeared normal. The scope at this time was withdrawn to the stomach, adequately insufflated with air, and upon careful examination, mucosa of the antrum, body, cardia and the fundus appeared normal. The scope was then withdrawn into the esophagus. The GE junction was located at 39 cm from the incisors. the bulb was severe erythema and some superficial oozing with mucosal erosions at the site of foreign body impaction. Also there was a distal esophageal early stricture identified. Biopsies were done from mid and distal esophagus. The rest of the esophagus appeared normal. The patient tolerated the procedure well. IMPRESSION: 1. Distal esophageal foreign body with 4 quarters lodged in the distal esophagus status post removal with a rat tooth forceps as described above . 2. Early distal esophageal stricture 3. LA grade B reflux esophagitis . RECOMMENDATIONS: The findings of this examination were discussed with the patien as well as his family. He will continue with Pepcid 20 mg twice daily. In the meantime will await biopsy results. He'll be seen in office in 3-4 weeks.
[2020-12-20 13:48] VITALS: BP 128/83; PULSE 79
--- NOTE | 2020-12-20 14:04 | CONS ---
CONSULTATION DATE OF DICTATION: December 20, 2020 REASON FOR CONSULTATION: Esophageal foreign body. HISTORY OF PRESENT ILLNESS: The patient is a 70-year-old white male who came to the emergency room complaining of dysphagia and pain in the midsternal area. He states that he was playing with his grand kids a couple of days ago and he swallowed a couple of quarters. He thought they would pass spontaneously. However, he was complaining of more dysphagia and hence he came to the emergency room and he had a chest x-ray done that showed evidence of foreign body lodged in the distal esophagus. The patient was seen in our office about a month ago for intermittent dysphagia to solids. Also has been complaining of some acid reflux. He was recently started on Pepcid 20 mg twice daily. PAST MEDICAL HISTORY: Significant for hypertension, gastroesophageal reflux disease, anxiety, depression. MEDICATIONS AT HOME: Zestoretic, Ambien, Geodon, Pepcid, Flomax, Prilosec, Remeron, Lamictal, Xalatan, and bupropion. ALLERGIES: Allergies to AMOXICILLIN, ERYTHROMYCIN, NAPROXEN, and SULFA. SOCIAL HISTORY: No smoking. No alcohol use. FAMILY HISTORY: Unremarkable. PAST SURGICAL HISTORY: He had knee surgery, hernia repair, back surgery. REVIEW OF SYSTEMS: CARDIOPULMONARY: No chest pain or shortness of breath. GENITOURINARY: No dysuria or hematuria. MUSCULOSKELETAL: Unremarkable. SKIN: Unremarkable. ENDOCRINE: Unremarkable. PSYCHIATRIC: History of anxiety, depression. NEUROLOGY: Unremarkable. ENT/VISION: Unremarkable. CONSTITUTIONAL: No recent weight loss. No fever, chills, night sweats. PHYSICAL EXAMINATION: He appears comfortable. No apparent distress. Vital signs are stable. Blood pressure is 133/86, pulse rate 82 per minute and afebrile. HEENT EXAMINATION: Unremarkable. Conjunctivae pink. Sclerae anicteric. Oral cavity no lesions. NECK: No JVD or lymph node enlargement. CHEST: Was clear to auscultation. HEART: Regular rate and rhythm. ABDOMEN: Soft. Bowel sounds are positive. No organomegaly. EXTREMITIES: No pedal edema. SKIN: No rashes. NEURO: He is alert and oriented x3. No focal deficits. LABS: No labs done at the time of this admission to the hospital. IMPRESSION: 1. Esophageal foreign body. Chest x-ray revealed two quarters lodged in the distal esophagus. 2. History of gastroesophageal reflux disease and intermittent dysphagia to solids. RECOMMENDATIONS: Will proceed with EGD with foreign body removal. Discussed with the patient risks, benefits and complications of procedure and he is agreeable to it. Thank you for this consultation. EPHRAIM / MCKAYLAN: [id number] /
== END 2020-12-20 14:25 | disposition home or self-care (01) ==
LOC: EC 09:50
DX: T18.198A Other foreign object in esophagus causing other injury, initial encounter (principal); K21.00 Gastro-esophageal reflux disease with esophagitis, without bleeding; K22.2 Esophageal obstruction; F32.9 Major depressive disorder, single episode, unspecified; I25.2 Old myocardial infarction; Z79.899 Other long term (current) drug therapy; Z88.0 Allergy status to penicillin; Z88.1 Allergy status to other antibiotic agents; Z88.8 Allergy status to other drugs, medicaments and biological substances; Z88.2 Allergy status to sulfonamides; Z88.6 Allergy status to analgesic agent; X58.XXXA Exposure to other specified factors, initial encounter
CPT/HCPCS: 71046; 99284; 43247; 43239; J2250; J3010; J2704

== ENCOUNTER 2021-03-02 22:44 | Emergency (ER) | payer MEDICARE, BC ==
[2021-03-02 22:54] VITALS: RESP 18; TEMP 98
--- NOTE | 2021-03-02 23:10 | ED ---
Fall HPI - General Chief Complaint: Fall Stated Complaint: Fall Time Seen by Provider: 03/02/21 22:58 Source: EMS Mode of arrival: EMS - History of Present Illness Initial Comments: This patient is a 71-year-old man brought by ambulance to be evaluated after he had a fall at home. The patient had been upstairs was attempting to go downstairs his heard a fall and went and checked him. She then called EMS. They believe that he fell down approximately 10-12 stairs. The patient is unable to describe the fall. Unsure if he had brief loss consciousness but he was awake when family found him. When I interview the patient is denying pains. Patient denies dyspnea. Patient has been drinking today and appears intoxicated. MD Complaint: fall -: minutes(s) Fall From: down stairs (#) (10) When Fall Occurred: just prior to arrival Fall Witnessed: no Place Fall Occurred: home Loss of Consciousness: unsure Prolonged Down Time?: no - Related Data Home Medications Medication Instructions Recorded Confirmed Omeprazole [PriLOSEC] 20 mg PO DAILY 05/01/14 12/20/20 Zolpidem [Ambien] 10 mg PO HS 05/01/14 12/20/20 oxyCODONE-APAP 10-325MG [Percocet 1 tab PO QID 05/01/14 12/20/20 10-325 mg] Famotidine [Pepcid] 20 mg PO BID 12/20/20 12/20/20 Fluticasone Nasal [place] [Flonase 1 spray EA NOSTRIL BID PRN 12/20/20 12/20/20 Nasal [place]] Latanoprost [Xalatan 0.005%] 1 drop BOTH EYES HS 12/20/20 12/20/20 Lisinopril-Hctz 10-12.5 mg 1 tab PO DAILY 12/20/20 12/20/20 [Zestoretic 10-12.5] Mirtazapine [Remeron] 45 mg PO HS 12/20/20 12/20/20 Tamsulosin HCl [Flomax] 0.4 mg PO DAILY 12/20/20 12/20/20 Ziprasidone HCl [Geodon] 80 mg PO HS 12/20/20 12/20/20 buPROPion HCL [buPROPion HCL SR] 200 mg PO BID 12/20/20 12/20/20 lamoTRIgine [LaMICtal] 150 mg PO DAILY 12/20/20 12/20/20 Allergies Allergy/AdvReac Type Severity Reaction Status Date / Time amoxicillin [Amoxicillin] Allergy Rash/Hives Verified 12/20/20 11:13 erythromycin lactobionate Allergy Rash/Hives Verified 12/20/20 11:13 [From Erythrocin] methylprednisolone Allergy Rash/Hives Verified 12/20/20 11:13 [From Medrol] naproxen [From Naprosyn] Allergy Rash/Hives Verified 12/20/20 11:13 Sulfa (Sulfonamide Allergy Rash/Hives Verified 12/20/20 11:13 Antibiotics) Review of Systems ROS Statement: Those systems with pertinent positive or pertinent negative responses have been documented in the HPI. ROS Other: All systems not noted in ROS Statement are negative. Limitations: ROS unobtainable due to patients medical condition Eyes: Denies: vision change Cardiovascular: Denies: chest pain Gastrointestinal: Denies: abdominal pain, vomiting Neurological: Denies: headache Past Medical History Past Medical History: Hypertension, Myocardial Infarction ([place]) Additional Past Medical History / Comment(s): CHRONIC BACK PAIN, esophageal s tricture, diarrhea, Last Myocardial Infarction Date:: 1990 History of Any Multi-Drug Resistant Organisms: None Reported Past Surgical History: Heart Catheterization, Hernia Repair, Orthopedic Surgery Additional Past Surgical History / Comment(s): EGD WITH DILITATION, PAIN STIMULATOR, LEFT KNEE surgery x 3, left knee cap removed, mika shoulder surgery, rt wrist surgery, Past Anesthesia/Blood Transfusion Reactions: No Reported Reaction Past Psychological History: Depression Smoking Status: Never smoker Past Alcohol Use History: Daily Past Drug Use History: None Reported - Past Family History Mother Family Medical History: Cancer General Exam Limitations: physical limitation General appearance: alert, in no apparent distress, appears intoxicated Head exam: Present: normocephalic, other (There is an abrasion near the crown of the scalp. No bony deformity or tenderness.) Eye exam: Present: PERRL, EOMI, nystagmus. Absent: scleral icterus, conjunctival injection Neck exam: Present: normal inspection, other (Patient in cervical collar. No tenderness.). Absent: tenderness Respiratory exam: Present: normal lung sounds bilaterally. Absent: respiratory distress, wheezes, rales, rhonchi, stridor, chest wall tenderness, accessory muscle use Cardiovascular Exam: Present: regular rate, normal rhythm, normal heart sounds. Absent: systolic murmur, diastolic murmur, rubs, gallop GI/Abdominal exam: Present: soft. Absent: distended, tenderness, guarding, rebound, rigid, mass Extremities exam: Present: normal inspection, normal capillary refill. Absent: pedal edema, calf tenderness Back exam: Present: normal inspection. Absent: CVA tenderness (R), CVA tenderness (L), vertebral tenderness Neurological exam: Present: alert, CN II-XII intact, other (Patient does have some mild dysarthria and some mild ataxia.). Absent: oriented X3, motor sensory deficit Expanded Motor strength exam: RUE: 5, LUE: 5, RLE: 5, LLE: 5 Eye Response: (4) open spontaneously Motor Response: (6) obeys commands Verbal Response: (4) confused conversation Skin exam: Present: warm, dry, normal color, abrasion Course Vital Signs 03/02/21 03/02/21 03/03/21 22:45 22:55 00:25 Temperature 98 F Pulse Rate 100 101 H 72 Respiratory 18 18 18 Rate Blood Pressure 133/92 142/91 143/94 O2 Sat by Pulse 94 L 95 97 Oximetry Medical Decision Making - Medical Decision Making Patient is 71-year-old man brought after he had fallen down stairs at home. The patient is found to have small intracerebral hemorrhage and also small area of intraventricular hemorrhage. Case is discussed with the patient and his , and then also subsequently with the patient's daughter. They didn't request to go to the nearest facility and agreed to [facility]. I discussed with Dr. Jones there, who will accept. - Lab Data Result diagrams: 03/02/21 23:09 03/02/21 23:09 Lab Results 03/02/21 03/02/21 03/02/21 Range/Units 23:09 23:09 23:32 WBC 11.4 H (3.8-10.6) k/uL RBC 4.22 L (4.30-5.90) m/uL Hgb 14.2 (13.0-17.5) gm/dL Hct 40.5 (39.0-53.0) % MCV 96.0 (80.0-100.0) fL MCH 33.6 (25.0-35.0) pg MCHC 35.0 (31.0-37.0) g/dL RDW 12.0 (11.5-15.5) % Plt Count 362 (150-450) k/uL MPV 7.0 Neutrophils % 62 % Lymphocytes % 25 % Monocytes % 8 % Eosinophils % 2 % Basophils % 0 % Neutrophils # 7.1 (1.3-7.7) k/uL Lymphocytes # 2.9 (1.0-4.8) k/uL Monocytes # 0.9 (0-1.0) k/uL Eosinophils # 0.3 (0-0.7) k/uL Basophils # 0.0 (0-0.2) k/uL Sodium 137 (137-145) mmol/L Potassium 3.6 (3.5-5.1) mmol/L Chloride 96 L (98-107) mmol/L Carbon Dioxide 23 (22-30) mmol/L Anion Gap 18 mmol/L BUN 13 (9-20) mg/dL Creatinine 1.17 (0.66-1.25) mg/dL Est GFR (CKD-EPI)AfAm 72 (>60 ml/min/1.73 sqM) Est GFR (CKD-EPI)NonAf 62 (>60 ml/min/1.73 sqM) Glucose 109 H (74-99) mg/dL Calcium 9.7 (8.4-10.2) mg/dL Total Bilirubin 0.4 (0.2-1.3) mg/dL AST 59 (17-59) U/L ALT 55 H (4-49) U/L Alkaline Phosphatase 83 (38-126) U/L Troponin I <0.012 (0.000-0.034) ng/mL Total Protein 7.4 (6.3-8.2) g/dL Albumin 4.9 (3.5-5.0) g/dL Serum Alcohol 52 mg/dL - EKG Data -: EKG Interpreted by [facility] EKG shows normal: sinus rhythm, axis (Normal), intervals (Normal), QRS complexes (Possible old septal infarct.), ST-T waves (Normal) Rate: tachycardia (Rate 101 bpm) Disposition Clinical Impression: Fall, Intracerebral IVH (intraventricular hemorrhage), Intracerebral bleed Disposition: OTHER INSTITUTION NOT DEFINED Condition: Serious Is patient prescribed a controlled substance at d/c from ED?: No Referrals: Austen Loaiza MD [Primary Care Provider] - 1-2 days - Out of Hospital Transfer - Req. Specs Out of Hospital Transfer - Requested Specifics: Other Emergency Center
[2021-03-02 23:20] LABS: Basophils % (A) 0 %; Eosinophils # (A) 0.3 k/uL (0-0.7); Eosinophils % (A) 2 %; HCT 40.5 % (39.0-53.0); HGB 14.2 gm/dL (13.0-17.5); Lymphocytes # (A) 2.9 k/uL (1.0-4.8); Lymphocytes % (A) 25 %; MCH 33.6 pg (25.0-35.0); Monocytes # (A) 0.9 k/uL (0-1.0); Monocytes % (A) 8 %; Neutrophils # (A) 7.1 k/uL (1.3-7.7); Neutrophils % (A) 62 %; Platelet Count 362 k/uL (150-450); RBC 4.22 m/uL (4.30-5.90); WBC 11.4 k/uL (3.8-10.6)
[2021-03-02 23:37] LABS: Albumin 4.9 g/dL (3.5-5.0); Calcium 9.7 mg/dL (8.4-10.2); Potassium 3.6 mmol/L (3.5-5.1); Total Bilirubin 0.4 mg/dL (0.2-1.3); Total Protein 7.4 g/dL (6.3-8.2)
--- NOTE | 2021-03-02 23:53 | CT ---
EXAMINATION TYPE: CT brain cspine wo con DATE OF EXAM: 03/02/2021 COMPARISON: 07/20/2020 HISTORY: fall CT DLP: 1531.6 mGycm Automated exposure control for dose reduction was used. Images obtained of the brain and cervical spine without contrast. There are multiple small areas of petechial cortical hemorrhage at the surface of the brain in the ri ght parietal lobe that measure up to 5 mm in thickness. There is also subtle 4 mm area of increased d ensity left posterior temporal lobe white matter consistent with hemorrhage. There is 1 cm focus of i ncreased density in the left frontal horn of the lateral ventricles consistent with intraventricular hemorrhage. There is linear 10 mm area of hemorrhage in the third ventricle. There is no subdural hem orrhage. There is no epidural hemorrhage. There is mild cerebral atrophy. Calvarium is intact. There is no evidence of a skull fracture. There is normal aeration of the mastoid sinuses. The cervical vertebra have normal alignment. The posterior elements are intact. Disc spaces are liana l. Facet joints are intact. I see no compression fracture. The skull base is intact. IMPRESSION: Multiple small areas of acute hemorrhage in the brain as above. This exam was discussed with ER physi katia at 11:50 PM. Spondylotic minimal changes in the cervical spine. No fracture.
--- NOTE | 2021-03-02 23:55 | XR ---
EXAMINATION TYPE: XR chest 2V DATE OF EXAM: 03/02/2021 COMPARISON: December 20, 2020 HISTORY: Fall. Injury. TECHNIQUE: 2 views FINDINGS: There is some mild atelectasis in the lower lung joseph. There is no heart failure. There i s no evidence of pleural effusion or pneumothorax. Trachea is midline. There are chest leads. IMPRESSION: There is some new mild atelectasis in the lower lung joseph compared to old exam. No hear t failure.
[2021-03-03 00:26] VITALS: BP 143/94; PULSE 72
--- NOTE | 2021-03-03 00:32 | CT ---
EXAMINATION TYPE: CT abdomen pelvis w con DATE OF EXAM: 03/03/2021 COMPARISON: None HISTORY: fall CT DLP: 1261.2 mGycm Automated exposure control for dose reduction was used. CONTRAST: Performed with IV Contrast, patient injected with 100 mL of Isovue 300. Images obtained from the diaphragm to the floor the pelvis with IV contrast. Lung bases are clear of consolidation. There is mild subsegmental atelectasis. There is no pleural ef fusion. Heart size is normal. Liver spleen stomach pancreas gallbladder appear intact. The bile ducts are nondilated. There is hiat al hernia. There is no adrenal mass. Kidneys show satisfactory contrast opacification. There is no hy dronephrosis. Delayed images show normal renal excretion. There is no retroperitoneal adenopathy. Ernesto dder distends smoothly. There is no inguinal hernia. There are surgical clips in left and right ingui nal region. Prostate measures almost 5 cm. There is no pelvic mass. There is no free fluid in the pel vis. There is no mesenteric edema. There is no ascites or free air. There is no bowel obstruction. Appendi x is not definitely seen. There is no sign of thickened appendix. The lumbar vertebra have normal alignment. There is no compression fracture. Posterior elements are i ntact. The bony pelvis is intact. The hip joints are intact. There is no hip dysplasia. IMPRESSION: No evidence of traumatic injury in the abdomen pelvis. Mild subsegmental atelectasis at the lung base s.
--- NOTE | 2021-03-03 00:34 | XR ---
EXAMINATION TYPE: XR thoracic spine complete DATE OF EXAM: 03/03/2021 COMPARISON: Yesterday HISTORY: Fall. Pain. TECHNIQUE: 3 views FINDINGS: There is neural stimulator in the lower thoracic spine. Vertebra have fairly normal alignme nt. I see no compression fracture. There is no paraspinal mass. There is some atelectasis at the lung bases. IMPRESSION: No acute abnormality of the thoracic spine. No fracture seen.
--- NOTE | 2021-03-03 00:35 | XR ---
EXAMINATION TYPE: XR lumbar spine 2 or 3V DATE OF EXAM: 03/03/2021 COMPARISON: 11/01/2016 HISTORY: Back pain TECHNIQUE: 3 views FINDINGS: Lumbar vertebra have normal alignment. Posterior elements are intact. There is slight narro wing of the L4-5 disc space. There is no compression fracture. Sacroiliac joints are intact. IMPRESSION: No acute abnormality of the lumbar spine. No fracture. No change compared to old exam.
== END 2021-03-03 00:26 | disposition other institution (70) ==
LOC: EC 22:44
DX: S06.361A Traumatic hemorrhage of cerebrum, unspecified, with loss of consciousness of 30 minutes or less, initial encounter (principal); R40.2362 Coma scale, best motor response, obeys commands, at arrival to emergency department; R40.2142 Coma scale, eyes open, spontaneous, at arrival to emergency department; R40.2242 Coma scale, best verbal response, confused conversation, at arrival to emergency department; I10 Essential (primary) hypertension; I25.2 Old myocardial infarction; Z88.0 Allergy status to penicillin; Z88.2 Allergy status to sulfonamides; Z79.899 Other long term (current) drug therapy; Z88.6 Allergy status to analgesic agent; Z88.8 Allergy status to other drugs, medicaments and biological substances; W10.9XXA Fall (on) (from) unspecified stairs and steps, initial encounter; Y92.009 Unspecified place in unspecified non-institutional (private) residence as the place of occurrence of the external cause
CPT/HCPCS: 36415; 93005; 80053; 84484; 85025; 72072; 72100; 71046; 72125; 70450; 74177; 99285; G0480; Q9967; 80320

== ENCOUNTER → 2022-10-22 | Outpatient (CLI) | payer MEDICARE ==
--- NOTE | 2022-10-22 12:37 | FL ---
EXAMINATION TYPE: FL barium swallow w video DATE OF EXAM: 10/22/2022 MODIFIED SWALLOW / DEGLUTITION STUDY CLINICAL HISTORY: Dysphagia. Reflux and heartburn without improvement on Prilosec. Coughing and choki ng. TECHNIQUE: Deglutition study is performed utilizing thin liquid barium, barium thick pudding, and ba rium coated cracker. 1.09 minutes of fluoro time and 0 images obtained. COMPARISON: None. FINDINGS: The oral and pharyngeal phases show satisfactory initiation and propagation with all modali ties tested. Satisfactory mastication is seen with solid modalities tested. Single episode of aspira tion with thin liquid barium with straw otherwise there is no evidence of penetration or aspiration w ith any modality tested. No significant pharyngeal residue was appreciated. IMPRESSION: Single episode of aspiration with thin liquid barium with straw otherwise unremarkable st udy. Please refer to speech therapist notes for further details if necessary.
== END | disposition home or self-care (01) ==
LOC: RADFLMAIN 10:48
PROVIDERS: ATTEND Otolaryngology
DX: K21.9 Gastro-esophageal reflux disease without esophagitis (principal); Y84.4 Aspiration of fluid as the cause of abnormal reaction of the patient, or of later complication, without mention of misadventure at the time of the procedure
CPT/HCPCS: 74230

== ENCOUNTER → 2022-10-23 | Outpatient (CLI) | payer MEDICARE ==
--- NOTE | 2022-10-23 10:33 | FL ---
EXAMINATION TYPE: FL barium swallow DATE OF EXAM: 10/23/2022 CLINICAL HISTORY: Dysphasia and aspiration. Occasional difficulty swallowing with sneezing. TECHNIQUE: A double contrast esophagram is performed utilizing air and barium. A total of 22 second s of fluoroscopic time was utilized during procedure and 49 images obtained COMPARISON: None FINDINGS: The esophagus shows satisfactory motility and emptying into the stomach. No proximal divert iculum. No evidence of fixed hiatal hernia or stricture noted. No significant gastroesophageal reflux was seen during real time performance of this study. A thoracic spinal stimulator device is incident ally noted. No aspiration occurred today. IMPRESSION: No significant abnormality is seen to account for patient's symptoms of upper throat dys phagia.
== END | disposition home or self-care (01) ==
LOC: RADUSWWP 09:42
PROVIDERS: ATTEND Otolaryngology
DX: R13.10 Dysphagia, unspecified (principal); Y84.4 Aspiration of fluid as the cause of abnormal reaction of the patient, or of later complication, without mention of misadventure at the time of the procedure
CPT/HCPCS: 74220

== ENCOUNTER 2023-06-22 14:26 | Day surgery (SDC) | payer MEDICARE, BC ==
--- NOTE | 2023-06-21 13:50 | P.HPOR ---
History of Present Illness H&P Date: 06/21/23 Subjective: This is a 73 year old male that presents today for initial evaluation regarding a right wrist injury that occurred on 06/14/2023 when he tripped and fell onto an outstretched hand. He had immediate pain and swelling after the fall. He states he has a history of a distal ulnar resection performed on the same wrist approximately 15 years and states he had no issues with the wrist after this distal ulnar resection. He denies any numbness or tingling. He denies any other areas of pain. Physical Examination: RUE: AIN/PIN/Radial/Ulnar/Median motor intact. Radial/Ulnar/Median SILT. 2+/4 Radial/Ulnar pulses palpated. 5/5 APB, 5/5 FDI. Bruising and swelling present around distal radius. Evidence of old dorsal ulnar incision from previous distal ulnar resection surgery. Able to make a fist. Remainder of exam limited due to pain. Imaging: X-Rays of the right wrist, 3 view taken in office today demonstrate a right intra-articular distal radius fracture with approximately 30% ulnar translation of the distal fragment on the proximal fragment. Postsurgical changes consistent with a previous Darrach procedure. Impression: 1.) Right distal radius fracture 2.) Previous distal ulna resection Plan: Diagnosis and treatment options were discussed and due to the amount of translation and displacement of his fracture and this being his dominant hand I recommend surgical intervention. He is schedule for a right distal radius open reduction internal fixation. Risks and benefits of surgery including bleeding, infection, damage to surrounding tissue, need for further surgery, residual numbness were discussed and the patient wished to go forward with surgery. The patient was agreeable with this plan. CC: Rich Loaiza M.D. -Audi Valencia DO Orthopedic Hand/Upper Extremity Surgeon Past Medical History Past Medical History: Hypertension, Myocardial Infarction ([place]) Additional Past Medical History / Comment(s): CHRONIC BACK PAIN, esophageal stricture, diarrhea Last Myocardial Infarction Date:: 1990 History of Any Multi-Drug Resistant Organisms: None Reported Past Surgical History: Heart Catheterization, Hernia Repair, Orthopedic Surgery Additional Past Surgical History / Comment(s): EGD WITH DILITATION, PAIN STIMULATOR, LEFT KNEE surgery x 3, left knee cap removed, mika shoulder surgery, rt wrist surgery, Past Anesthesia/Blood Transfusion Reactions: No Reported Reaction Smoking Status: Never smoker - Past Family History Mother Family Medical History: Cancer Medications and Allergies Home Medications Medication Instructions Recorded Confirmed Type Omeprazole [PriLOSEC] 40 mg PO QAM 05/01/14 06/18/23 History Famotidine [Pepcid] 20 mg PO BID 12/20/20 06/18/23 History Fluticasone Nasal [place] [Flonase 1 spray EA NOSTRIL BID PRN 12/20/20 06/18/23 History Nasal [place]] Latanoprost [Xalatan 0.005%] 1 drop BOTH EYES HS 12/20/20 06/18/23 History Lisinopril-Hctz 10-12.5 mg 1 tab PO QAM 12/20/20 06/18/23 History [Zestoretic 10-12.5] Mirtazapine [Remeron] 45 mg PO HS 12/20/20 06/18/23 History Tamsulosin HCl [Flomax] 0.4 mg PO HS 12/20/20 06/18/23 History ziprasidone HCL [Geodon] 80 mg PO HS 12/20/20 06/18/23 History HYDROcodone/APAP 5-325MG [[place] 5] 1 each PO Q6HR PRN #12 tab 06/14/23 06/18/23 Rx Amitriptyline HCl 5 mg PO QAM 06/18/23 06/18/23 History Famotidine 20 mg PO QAM 06/18/23 06/18/23 History Hydrocodone/Acetaminophen 1 tab PO Q6H PRN 06/18/23 06/18/23 History [Hydrocodone/Acetaminophen 7.5-325] Meloxicam [Mobic] 15 mg PO Q4H PRN 06/18/23 06/18/23 History amLODIPine [Norvasc] 5 mg PO BID 06/18/23 06/18/23 History traZODone HCL [Desyrel] 50 mg PO QAM 06/18/23 06/18/23 History Allergies Allergy/AdvReac Type Severity Reaction Status Date / Time amoxicillin [Amoxicillin] Allergy Rash/Hives Verified 06/18/23 13:23 erythromycin lactobionate Allergy Rash/Hives Verified 06/18/23 13:23 [From Erythrocin] methylprednisolone Allergy Rash/Hives Verified 06/18/23 13:23 [From Medrol] naproxen [From Naprosyn] Allergy Rash/Hives Verified 06/18/23 13:23 Sulfa (Sulfonamide Allergy Rash/Hives Verified 06/18/23 13:23 Antibiotics) Physical Examination Osteopathic Statement: *. No significant issues noted on an osteopathic structural exam other than those noted in the History and Physical/Consult.
[~2023-06-22 14:26] MED LIST: LACTATED RINGERS 1,000 ML IV SCH; ONDANSETRON 4 MG/2 ML VIAL IVP ONE; fentaNYL (PF) 50 MCG/ML 2 ML AMP IV PRN
[2023-06-22] MEDS ORDERED: ONDANSETRON 4 MG/2 ML VIAL IVP ONE (15:37)
[2023-06-22 15:50] LABS: African American GFR (CKD) 49 (>60 ml/min/1.73 sqM); Anion Gap 19 mmol/L; Blood Urea Nitrogen 22 mg/dL (9-20); Calcium 9.6 mg/dL (8.4-10.2); Carbon Dioxide 15 mmol/L (22-30); Chloride 99 mmol/L (98-107); Glucose 118 mg/dL (74-99); Non-African American GFR(CKD) 43 (>60 ml/min/1.73 sqM); Potassium 4.4 mmol/L (3.5-5.1); Sodium 133 mmol/L (137-145)
[2023-06-22] MEDS ORDERED: MIDAZOLAM 2 MG/2 ML VIAL IVP ONE (16:01)
--- NOTE | 2023-06-22 16:40 | P.ANPRN ---
Procedure Note - Anesthesia - Nerve Block Performed Right Supraclavicular Single Time Out Performed: Yes ([id number]) Date of Procedure: 06/22/23 Procedure Start Time: 16:01 Procedure Stop Time: 16:07 Location of Patient: PreOp Indication: Acute Post-Operative Pain, Requested by Surgeon Sedation Type: Sedate with meaningful contact maintained Preparation: Sterile Prep, Sterile Dressing Position: Sitting Catheter: None Needle Types: [place] Needle Gauge: 21, Other (see comment) Ultrasound used to visualize needle placement: Yes Ultrasound used to observe medication spread: Yes Injectate: 0.5% Ropivacaine (see comment for volume) (20ml) Blood Aspirated: No Pain Paresthesia on Injection Noted: No Resistance on Injection: Normal Image Stored and Saved: Yes Events: Uneventful and Well Tolerated
[2023-06-22] MEDS ORDERED: fentaNYL (PF) 50 MCG/ML 2 ML AMP ONE (17:26)
[2023-06-22] MEDS ORDERED: SODIUM CHLORIDE 0.9% (PF) 10 ML VIAL ONE (17:26)
[2023-06-22] MEDS ORDERED: PHENYLEPHRINE-0.9% NACL SYG 1,000 MCG/10 ML SYRINGE ONE (17:26)
[2023-06-22] MEDS ORDERED: LIDOCAINE 2% INJ 20 MG/ML (2 ML VIAL) ONE (17:26)
[2023-06-22] MEDS ORDERED: PROPOFOL 10 MG/ML 20 ML VIAL IV ONE (17:26)
[2023-06-22] MEDS ORDERED: ROPIVACAINE 5 MG/ML 30 ML VIAL ONE (17:26)
[2023-06-22] MEDS ORDERED: MIDAZOLAM 2 MG/2 ML VIAL ONE (17:26)
[2023-06-22] MEDS ORDERED: LACTATED RINGERS 1,000 ML IV ONE (18:30)
[2023-06-22 19:54] VITALS: TEMP 96.8
[2023-06-22 20:06] VITALS: RESP 22
[2023-06-22] MEDS ORDERED: traMADol 50 MG TAB ONE (20:21)
[2023-06-22] MEDS ORDERED: traMADol 50 MG TAB PO ONE (20:21)
[2023-06-22 20:41] VITALS: BP 100/61; PULSE 93
--- NOTE | 2023-06-22 22:14 | P.OP ---
Date of Procedure: 06/22/23 Preoperative Diagnosis: Right intra-articular distal radius fracture Postoperative Diagnosis: Right intra-articular distal radius fracture Procedure(s) Performed: Open reduction internal fixation of right distal radius fracture, 3 parts. ([id number]) Implants: Arthrex fragment specific dorsal distal radius locking plate Anesthesia: [facility] Surgeon: Audi Valencia Sister Superior #1: Ranulfo Maldonado Estimated Blood Loss (ml): 10 Pathology: none sent Condition: stable Disposition: PACU Description of Procedure: This is a 73 year old male who sustained a displaced intra-articular distal radius fracture and presents today for open reduction internal fixation of their right distal radius fracture. Patient has an extensive history of prior trauma to this wrist which ultimately led to a distal ulnar resection 10 years prior. He sustained a fall from standing on to an outstretched wrist and sustained an comminuted intra-articular distal radius fracture. Risks and benefits of surgery were discussed with the patient including bleeding, damage to surrounding tissue, infection, need for further surgery as well as risks of anesthesia including pulmonary embolism and even and the patient wished to proceed with surgical intervention. The patients was seen in the pre-operative area by myself. Consent and H&P were completed and updated. The correct extremity was marked in the pre-operative area by myself and all other questions were answered. Operative Narrative: The patient was brought to the operating room by the department of anesthesia. They remained on the portable stretcher and a rolling hand table was brought to the side of the operative extremity. Pre-operative time out was performed indicating the correct patient, procedure and laterality. All in the room agreed. Pre-operative antibiotics were given prior to skin incision. The patient was then drifted off to sleep by the department of anesthesia. A nonsterile tourniquet was then applied to the operative extremity and the right upper extremity was then prepped and draped in normal sterile fashion. The operative extremity was the exsanguinated with an esmarch bandage and the tourniquet was inflated to 250mmHg. A longitudinal incision centered over the FCR tendon was made with a 15-blade scalpel. Blunt dissection was taken down to the FCR tendon sheath using Bovie cautery for meticulous hemostasis. The FCR sheath was opened with tenotomy scissors. The floor of the FCR sheath was then incised with a 15-blade scalpel and the FPL tendon and muscle belly was swept bluntly in an ulnar direction to reveal the pronator quadratus. Pronator quadratus was sharply incised with a 15-blade scalpel along the radial border of the distal radius, coming across transversely parallel to the joint at the level of the watershed line, radial a rtery was identified and protected. Periosteal elevator was then used to elevate the pronator quadratus off the distal radius from a radial to ulnar fashion. It was apparent after direct visualization that the fracture, specifically the ulnar portion was extremely distally located and was actually just at and slightly distal to the watershed line. Attempt at temporary volar plate fixation was made but the fracture line was too distally located therefore volar plating was not an options due to inadequate fixation of the distally located fragment. Therefore decision was made to proceed with dorsal fragment specific plating to allow for more distal location of the plate to capture the distal fragments. 15 blade scalpel was used to make a longitudinal incision centered over Peter's Tubercle. Blunt dissection was taken down through subcutaneous tissues taking care to protect branches of SBRN and dorsal ulnar cutaneous branches of the ulnar nerve. The 3rd dorsal compartment was incised sharply and the EPL tendon was identified and transposed. Sub periosteal dissection was then performed to elevate the 2nd and 4th dorsal compartments. Fracture fragments were mobilized and debrided of any hematoma and fibrous tissue, there was extensive comminution and impaction of the dorsal cortex with 3 main fragments dorsally. Reduction was performed to restore volar tilt. An Arthrex dorsal distal radius locking plate was then chosen which best fit the patients anatomy to buttress the very distally located fracture fragments. Plate was placed just proximal to articular surface and a non-locking screw was drilled and filled in the oblong hole. Drilling was then performed along the distal row of screws, direct visualization of the articular surface was able to be performed to ensure no intra-articular penetration. Proximal shaft holes were then filled with non-locking and locking screws. X-ray was utilized to confirm adequate reduction and extra-articular placement of screws with uatsdin of volar tilt, radial height and inclination. The wound was then irrigated. The previously elevated 2nd and 4th dorsal compartments were then repaired back down to periosteum with 4-0 monocryl suture and the EPL tendon was left transposed. Subcutaneous closure was performed with interrupted 4-0 monocryl sutures followed by running 4-0 nylon suture. Soft dressing with 4x4s, cast padding and plaster splint was applied. Tourniquet was let down and the hand had immediate perfusion. The patient was then transferred to PACU in stable condition. Ranulfo RAY was present to assist in fracture reduction and hardware placement. Modifier 22 is requested due to the increased difficulty of this comminuted and very distally based fracture which was not amendable to standard volar plating, patient also has an extensive history of prior trauma to this wrist including distal ulna resection making the reduction, dissection, and hardware placement more difficult that expected for a normal distal radius fracture. Audi Valencia DO Orthopedic Hand/Upper Extremity Surgeon
== END 2023-06-22 20:46 | disposition home or self-care (01) ==
LOC: OR 14:26
PROVIDERS: ATTEND Orthopaedic Surgery Hand Surgery
DX: S52.571A Other intraarticular fracture of lower end of right radius, initial encounter for closed fracture (principal); I10 Essential (primary) hypertension; I25.2 Old myocardial infarction; G89.18 Other acute postprocedural pain; Z95.1 Presence of aortocoronary bypass graft; Z88.0 Allergy status to penicillin; Z88.6 Allergy status to analgesic agent; Z88.2 Allergy status to sulfonamides; Z79.899 Other long term (current) drug therapy; W01.0XXA Fall on same level from slipping, tripping and stumbling without subsequent striking against object, initial encounter
CPT/HCPCS: 64415; 80048; 25609; C1713; J2250; J0690; J2405; J3010; J2795; J2704; J2001; J2371

== ENCOUNTER 2023-11-03 10:50 | Day surgery (SDC) | payer MEDICARE, BC ==
--- NOTE | 2023-11-02 13:24 | P.HPOR ---
History of Present Illness H&P Date: 11/02/23 Subjective: This is a 73 year old male that presents today for a post-operative visit after undergoing right distal radius ORIF on 06/22/23. He has been working on ROM mostly out of the brace and wears the brace to sleep at night. He has noticed some irritation on the radial aspect of the wrist and has some weakness when trying to threader a steering wheel. He notes pain along the distribution of the plate with some swelling over the second and first dorsal compartments. Physical Examination: RUE: AIN/PIN/Radial/Ulnar/Median motor intact. Radial/Ulnar/Median SILT. 2+/4 Radial/Ulnar pulses palpated. Volar and dorsal incisions well approximated. Wrist F/E 60/50. Dorsal plate palpable near first and second dorsal compartments. Impression: 1.) S/P Right distal radius ORIF. 2.) Irritable dorsal orthopedic implant. Plan: Diagnosis and treatment options were discussed with the patient. We discussed the complexity of his fracture pattern with it being very distally located and not amendable to volar plate fixation therefore decision was made to proceed with dorsal plating. As we discussed previously, we again discussed that dorsal plating may cause extensor tendon irritation. I recommend plate removal now that his fracture is healed to avoid any further irritation of his extensor compart ments. He wishes to go forward with right wrist removal of deep orthopedic implant and extensor tenolysis at level of the wrist. Risks and benefits of surgery including bleeding, infection, damage to surrounding tissue, need for further surgery, residual numbness were discussed and the patient wished to go forward with surgery. The patient is agreeable with this plan. -Audi Valencia DO Orthopedic Hand/Upper Extremity Surgeon Past Medical History Past Medical History: GERD/Reflux, Hypertension, Myocardial Infarction (HI) Additional Past Medical History / Comment(s): chronic back/neck pain - nerve pain, esophageal stricture, diarrhea Last Myocardial Infarction Date:: 1990 History of Any Multi-Drug Resistant Organisms: None Reported Past Surgical History: Heart Catheterization, Hernia Repair, Orthopedic Surgery Additional Past Surgical History / Comment(s): EGD WITH DILITATION, PAIN STIMULATOR - lower back, LEFT KNEE surgery x 3, left knee cap removed, mika shoulder surgery, rt wrist surgery, Past Anesthesia/Blood Transfusion Reactions: No Reported Reaction Smoking Status: Never smoker - Past Family History Mother Family Medical History: Cancer Medications and Allergies Home Medications Medication Instructions Recorded Confirmed Type Omeprazole [PriLOSEC] 40 mg PO QAM 05/01/14 10/29/23 History Fluticasone Nasal Chrisman [Flonase 1 spray EA NOSTRIL BID PRN 12/20/20 10/29/23 History Nasal Chrisman] Latanoprost [Xalatan 0.005%] 1 drop BOTH EYES HS 12/20/20 10/29/23 History Lisinopril-Hctz 10-12.5 mg 1 tab PO QAM 12/20/20 10/29/23 History [Zestoretic 10-12.5] Tamsulosin HCl [Flomax] 0.4 mg PO HS 12/20/20 10/29/23 History Amitriptyline HCl 25 mg PO QAM 06/18/23 10/29/23 History Meloxicam [Mobic] 15 mg PO DAILY PRN 06/18/23 10/29/23 History amLODIPine [Norvasc] 5 mg PO BID 06/18/23 10/29/23 History Ibuprofen [Motrin Ib] 200 mg PO Q8H PRN 10/29/23 10/29/23 History Allergies Allergy/AdvReac Type Severity Reaction Status Date / Time amoxicillin [Amoxicillin] Allergy Rash/Hives Verified 10/29/23 13:48 erythromycin lactobionate Allergy Rash/Hives Verified 10/29/23 13:48 [From Erythrocin] methylprednisolone Allergy Rash/Hives Verified 10/29/23 13:48 [From Medrol] naproxen [From Naprosyn] Allergy Rash/Hives Verified 10/29/23 13:48 Sulfa (Sulfonamide Allergy Rash/Hives Verified 10/29/23 13:48 Antibiotics) Physical Examination Osteopathic Statement: *. No significant issues noted on an osteopathic structural exam other than those noted in the History and Physical/Consult.
[2023-11-03] MEDS ORDERED: HYDROmorphone 0.5 MG/0.5 ML SYRINGE IVP PRN (10:58)
[2023-11-03] MEDS: fentaNYL (PF) 50 MCG/1 ML VIAL IVP ONE (11:35)
[2023-11-03] MEDS: MIDAZOLAM 2 MG/2 ML VIAL IVP ONE (11:35)
[2023-11-03] MEDS: DEXAMETHASONE SOD PHOSPHATE 4 MG/ML 1 ML VIAL IVP ONE (11:41)
[2023-11-03] MEDS: ONDANSETRON 4 MG/2 ML VIAL IVP ONE (11:41)
[2023-11-03] MEDS: LACTATED RINGERS 1,000 ML IV SCH (11:53)
[2023-11-03] MEDS ORDERED: MIDAZOLAM 2 MG/2 ML VIAL ONE (12:15)
[2023-11-03] MEDS ORDERED: LIDOCAINE 4% LTA KIT (4 ML) TOPICAL ONE (12:15)
[2023-11-03] MEDS ORDERED: ROPIVACAINE 5 MG/ML 30 ML VIAL ONE (12:15)
[2023-11-03] MEDS ORDERED: fentaNYL (PF) 50 MCG/ML 2 ML AMP ONE (12:15)
[2023-11-03] MEDS ORDERED: LIDOCAINE 1% INJ 10MG/ML (20 ML MDV) ONE (12:15)
[2023-11-03] MEDS ORDERED: DEXAMETHASONE SOD PHOSPHATE 4 MG/ML 1 ML VIAL ONE (12:15)
[2023-11-03] MEDS ORDERED: SUCCINYLCHOLINE CHLORIDE 200 MG/10 ML VIAL IV ONE (12:15)
[2023-11-03] MEDS ORDERED: PROPOFOL 10 MG/ML 20 ML VIAL IV ONE (12:15)
--- NOTE | 2023-11-03 12:52 | P.ANPRN ---
Procedure Note - Anesthesia - Nerve Block Performed Right Supraclavicular Single Time Out Performed: Yes Date of Procedure: 11/03/23 Procedure Start Time: 11:35 Procedure Stop Time: 11:43 Location of Patient: PreOp Indication: Acute Post-Operative Pain, Requested by Surgeon Sedation Type: Sedate with meaningful contact maintained Preparation: Sterile Prep Position: Supine Needle Types: Pajunk Needle Gauge: 21 Ultrasound used to visualize needle placement: Yes Ultrasound used to observe medication spread: Yes Injectate: 0.5% Ropivacaine (see comment for volume) (25 ml + 4 mg Dexamethasone) Blood Aspirated: No Pain Paresthesia on Injection Noted: No Resistance on Injection: Normal Image Stored and Saved: Yes Events: Uneventful and Well Tolerated
[2023-11-03 13:47] VITALS: TEMP 97
[2023-11-03 14:48] VITALS: BP 136/85; PULSE 88; RESP 18
--- NOTE | 2023-11-03 21:13 | P.OP ---
Date of Procedure: 11/03/23 Preoperative Diagnosis: 1.) Right wrist irritable deep orthopedic implant Postoperative Diagnosis: 1.) Right wrist irritable deep orthopedic implant Procedure(s) Performed: 1.) Right wrist removal of irritable deep orthopedic implant () 2.) Right wrist extensor tenolysis at level of wrist joint (75083) Anesthesia: regional Surgeon: Audi Valencia Spareribs Trimmer #1: Jonathan Valdovinos Estimated Blood Loss (ml): 0 Pathology: none sent Condition: stable Disposition: PACU Description of Procedure: This is a 73 year old male who presents today for a right wrist removal of deep hardware and extensor tenolysis after undergoing distal radius ORIF surgery with a dorsal plate fixation for a comminuted, distally located, intra-articular distal radius fracture. Risks and benefits of surgery were discussed with the patient including bleeding, damage to surrounding tissue, infection, need for further surgery as well as risks of anesthesia including pulmonary embolism and even and the patient wished to proceed with surgical intervention. The patient was seen in the pre-operative area by myself. Consent and H&P were completed and updated. The correct extremity was marked in the pre-operative area by myself and all other questions were answered. The patient was brought to the operating room by the department of anesthesia. They remained on the portable stretcher and a rolling hand table was brought to the side of the operative extremity. Pre-operative time out was performed indicating the correct patient, procedure and laterality. All in the room agreed. Pre-operative antibiotics were given prior to skin incision. The patient was then drifted off to sleep by the department of anesthesia. A nonsterile tourniquet was then applied to the operative extremity and the right upper extremity was then prepped and draped in normal sterile fashion. The operative extremity was the exsanguinated with an esmarch bandage and the tourniquet was inflated to 250mmHg. An incision was made longitudinally just ulnar to Peter's Tubercle at site of previous scar. Further blunt dissection down to the proximal portion of the extensor retinaculum was performed. The transposed EPL tendon was identified and released from its scarred pseudocompartment that had developed. 4th dorsal compartment was then subperiostally elevated from radial to ulnar to reveal the dorsal plate. A periosteal elevator was used to free the plate from surrounding bone to loosen the plate which was then removed, there appeared to be one broken locking screw which was able to be successfully removed. The wound was then irrigated. Extensor tenolysis was then performed through the dorsal incision freeing surrounding scar tissue from the second, third and four dorsal compartment tendons which were all found to be intact. Scar tissue and adhesions were broken up and scar tissue was excised and extensor tenolysis was performed at the level of the wrist. Fluoroscopy was then utilized to confirm removal of all plates and screws. Wrist was flexed and extended under fluoroscopy and distal radius fracture was moving as a single unit and 50 degrees of flexion/extension was appreciated. There was solid union of the fracture site. Wounds were irrigated and subcutaneous closure was performed with 4-0 monocryl followed by skin closure with running 4-0 monocryl suture. Sterile dressing consisting of steri strips, 4x4s, and cast padding was applied. Tourniquet was let down and the hand had immediate perfusion. The patient was then woken by the department of anesthesia and transferred to PACU in stable condition. Jonathan RAY was present to assist in major portions of the procedure. Audi Valencia DO Orthopedic Hand/Upper Extremity Surgeon
== END 2023-11-03 15:20 | disposition home or self-care (01) ==
LOC: OR 10:50
PROVIDERS: ATTEND Orthopaedic Surgery Hand Surgery
DX: T84.84XA Pain due to internal orthopedic prosthetic devices, implants and grafts, initial encounter (principal); G89.18 Other acute postprocedural pain; K21.9 Gastro-esophageal reflux disease without esophagitis; I10 Essential (primary) hypertension; I25.10 Atherosclerotic heart disease of native coronary artery without angina pectoris; G89.29 Other chronic pain; I25.2 Old myocardial infarction; Z98.890 Other specified postprocedural states; Z79.899 Other long term (current) drug therapy; Z88.0 Allergy status to penicillin; Z88.6 Allergy status to analgesic agent; Z88.2 Allergy status to sulfonamides
CPT/HCPCS: 20680; 26445; 64415; 84132; J2250; J0330; J1100; J0690; J2405; J2001; J3010 ×2; J2795; J2704

== ENCOUNTER → 2024-07-26 | Outpatient (CLI) | payer MEDICARE, BC ==
--- NOTE | 2024-07-26 12:40 | CT ---
EXAMINATION TYPE: CT lumbar spine wo con CT DLP: 872.00 mGycm, Automated exposure control for dose reduction was used. DATE OF EXAM: 07/26/2024 12:16 PM COMPARISON: CT abdomen pelvis 03/03/2021, lumbar spine radiograph 03/03/2021, CT lumbar spine 03/31/2016 . CLINICAL INDICATION:Male, 74 years old with history of M54.2 M54.40 LUMBAGO WITH SCIATICA, UNSPECIFIE D SI; PHH, TECHNIQUE: Multiple axial images were obtained from the midportion of T11 through the sacroiliac ronak nts. Soft tissue and bone windows in coronal and sagittal planes were obtained and reviewed. Contrast used: none. Oral contrast used: none. FINDINGS: Alignment: There are 5 lumbar type vertebral bodies within normal alignment. Bone: No evidence of fracture is identified. Degenerative changes of the bilateral SI joints with ri ght anterior bridging. Discs: T12-L1: Broad-based calcified disc bulge without significant effacement of the anterior thecal sac. N o neuroforaminal stenosis. L1-L2: No spinal canal or neural foraminal stenosis is identified. L2-L3: Broad-based calcified disc bulge with mild to moderate effacement of anterior thecal sac. Bila teral facet arthropathy. Mild to moderate right neural foraminal stenosis. The left neural foramen is patent. L3-L4: Broad-based disc bulge with mild effacement of anterior thecal sac. Bilateral facet arthropath y. Mild bilateral neural foraminal stenosis. L4-L5: Broad-based disc bulge with mild effacement of anterior thecal sac. Bilateral facet arthropath y. Mild to moderate bilateral neural foraminal stenosis. L5-S1: Broad-based disc bulge without significant effacement of the anterior thecal sac. Left-sided f acet arthropathy. Mild left neural foraminal stenosis. The right neural foramen is patent. Other: Left gluteal powerpack device with 2 leads extending along the posterior midline back superior ly. Visualized portion liver is diffusely hypoattenuating consistent with fatty infiltration. Atheros clerotic calcification of the aorta and its branches without evidence for aneurysm. IMPRESSION: 1. No evidence for acute spinal fracture. 2. Mild to moderate multilevel degenerative disc disease as described above. Most prominent at L2-L3 with mild to moderate central canal stenosis. [facility], , 07/26/2024 12:37 PM
--- NOTE | 2024-07-26 13:01 | CT ---
EXAMINATION TYPE: CT cervical spine wo con CT DLP: 454.30 mGycm, Automated exposure control for dose reduction was used. DATE OF EXAM: 07/26/2024 12:16 PM COMPARISON: CT brain C-spine 03/02/2021. CLINICAL INDICATION:Male, 74 years old with history of M54.2 M54.40 LUMBAGO WITH SCIATICA, UNSPECIFIE D SI; PHH, pain TECHNIQUE: Axial CT images from the skull base to the inferior aspect of T2 we obtained without intra venous contrast. Coronal and sagittal reformatted images were also reviewed. FINDINGS: Fracture: None. Osseous structures: Unremarkable Vertebral alignment: Within normal limits. Spinal canal/Neural Foramina: Broad-based disc bulges without significant effacement of the anterior thecal sac at C2-C3, C3-C4, and C4-C5. Uncovertebral joint hypertrophy with mild right neuroforaminal stenosis at C4-C5. Neck soft tissues: Prevertebral soft tissues are within normal limits. Other: The airway is patent. The lung apices are clear. Bilateral carotid bulb calcifications. IMPRESSION: 1. No evidence of cervical spine fracture. 2. Mild multilevel degenerative disc disease. [facility], , 07/26/2024 12:58 PM
== END | disposition home or self-care (01) ==
LOC: RADCTMAIN 11:47
PROVIDERS: ATTEND Psychiatry & Neurology Neurology
DX: M48.02 Spinal stenosis, cervical region (principal); M51.16 Intervertebral disc disorders with radiculopathy, lumbar region; M50.30 Other cervical disc degeneration, unspecified cervical region; M47.816 Spondylosis without myelopathy or radiculopathy, lumbar region; M99.73 Connective tissue and disc stenosis of intervertebral foramina of lumbar region; I70.0 Atherosclerosis of aorta
CPT/HCPCS: 72125; 72131

== ENCOUNTER 2025-03-30 12:21 | Day surgery (SDC) | payer MEDICARE, BC ==
[2025-03-29 12:56] VITALS: BMI 32.6
[~2025-03-30 12:21] MED LIST changes: -ONDANSETRON 4 MG/2 ML VIAL IVP ONE; -fentaNYL (PF) 50 MCG/ML 2 ML AMP IV PRN
[2025-03-30] MEDS: IV FLUID CONTINUATION 1,000 ML IV ONE ×2 (13:10→14:49)
[2025-03-30 13:30] VITALS: TEMP 97.2
[2025-03-30] MEDS ORDERED: PROPOFOL 10 MG/ML 20 ML VIAL IV ONE (14:28)
--- NOTE | 2025-03-30 14:45 | P.PCN ---
Date of Procedure: 03/30/25 Procedure(s) Performed: BRIEF HISTORY: Patient is a 75-year-old pleasant white male scheduled for an elective colonoscopy as a part of screening for colon cancer. PROCEDURE PERFORMED: Colonoscopy. PREOPERATIVE DIAGNOSIS: Screening for colon cancer. IV sedation per Anesthesia. PROCEDURE: After informed consent was obtained, the patient, was brought into the endoscopy unit. IV sedation was administered by Anesthesia under continuous monitoring. Digital rectal examination was normal. Initially the Olympus CF-160 flexible video colonoscope was then inserted in the rectum, gradually advanced into the cecum without any difficulty. Careful examination was performed as the scope was gradually being withdrawn. Ileocecal valve and the appendiceal orifice were visualized and appeared normal. Prep was excellent. Mucosa of the cecum, ascending colon, transverse colon, descending colon, sigmoid colon, and rectum appeared normal. Retroflexion was performed in the rectum and small internal hemorrhoids were seen. The patient tolerated the procedure well. IMPRESSION: Normal-appearing colon from rectum to cecum of colorectal neoplasia. Small internal hemorrhoids. RECOMMENDATIONS: Findings of this examination were discussed with the patient as well as his family. He was advised to be on high-fiber diet and take fiber supplements on a regular basis..
[2025-03-30 15:09] VITALS: BP 125/71; PULSE 81; RESP 17
== END 2025-03-30 15:34 | disposition home or self-care (01) ==
LOC: ORWHC2ENDO 12:21
PROVIDERS: ATTEND Internal Medicine Gastroenterology
DX: Z12.11 Encounter for screening for malignant neoplasm of colon (principal); K64.8 Other hemorrhoids; I10 Essential (primary) hypertension; E78.5 Hyperlipidemia, unspecified; N40.0 Benign prostatic hyperplasia without lower urinary tract symptoms; K21.9 Gastro-esophageal reflux disease without esophagitis; Z88.6 Allergy status to analgesic agent; Z88.1 Allergy status to other antibiotic agents; Z88.0 Allergy status to penicillin; Z88.2 Allergy status to sulfonamides; Z79.899 Other long term (current) drug therapy
CPT/HCPCS: J2704; G0121